=== PATIENT | male | born 1950 | race Caucasian/White ===

== ENCOUNTER 2016-06-16 10:35 | Emergency (ER) | payer MEDICARE ==
[~2016-06-16] VITALS: Ht 177.8 cm; Wt 131.5 kg
[~2016-06-16 10:35] MED LIST: *CXR; /ADVA50050; /ADVA50050 IN; /ADVA50050 INH; /AUGM875TA; /GLIP10TAB; /METO5T; /MOXI40TA OR; /TAMS4CA; /TAMS4CA OR; /TIOT18INH INH; ACET10SO INH; ACTOS15 PO; ADV500INH INH; ADVAIR250 INHALATION; ALBOTERNEB INHALATION; ALBU17IN2 INH; ALBUTEROL INH; ALDACTON25 PO; ALLO300T; ALLO300T OR; ALLOPUR300 PO; AMLO10TA; AMLO10TA OR; AMO500 PO; ASP325; ASPI325T OR; ASPI325T PO; ATEN25TA OR; ATEN25TA PO; ATROV NEBS; ATROV NEBS INHAL; ATROVENTIN PO; AUG875 PO; AVANDIA2 PO; AVELOX PO; BACTRIMDS PO; BUDE0.254 INH; CANNULA INH; CECLOR PO; CEFTIN250 PO; CEFTIN500 PO; CIPR-250 PO; CIPR500T4 OR; CIPR500T89 PO; CIPRO250; COLA100C PO; COLA100C2 OR; COLA50CA3 PO; COLCHI0.6 PO; COZA100T OR; CRESTOR PO; DOCU10ELUD PO; DOXY100T OR; DUONEBS INH; DUONSOL; DUONSOL IN; DUONSOL INH; DUONSOL INHALATION; E E S PO; ECOT325T5; EES PO; EUCECRE2 EXT; FINA5TAB2 PO; FLAG500T; FLAGYL250 PO; FLOM5CAP PO; FLOMAX 0.4; FLUC10TA OR; FORTAMET PO; FURO20TA; FURO20TA2 PO; FURO40TA2; FURO40TA2 OR; FURO40TA2 PO; GENTAMICIN INH; GLIP10TA PO; GLIP10TA97 OR; GLUCOSE TEST; INSUDET SC; INSULADS SC; INSULANT SC; INSULIN 70/30; IPRASOL4 INH; IPRATROP INHALATION; ISMO20TA; ISMO20TA OR; ISORDIL OR; ISORDIL20 PO; ISOS20TA PO; ISOSORBIDE MONO PO; KEFLEX500 PO; KLOR1TAB77 PO; KLOR20TA PO; LAMISIL250 PO; LANTINJ SC; LASI40TA; LASI40TA PO; LASI80TA PO; LASIX40 PO; LEVO500T PO; LEVO500T32 PO; LEVO750T PO; LISINOPR20 PO; LOSA100T36 PO; MEDROLDP PO; METF500T PO; METFORM100 PO; MILKSUS OR; MOM30SS PO; MONOPRIL10 PO; MUCI600T34 PO; Mucinex PO; NYSTPOW4 TOP; OMEP40CA2 PO; OXYGEN; PERF20NE2 INH; POTA10CA2; POTA20TA; POTA20TA OR; PRED10PA PO; PRED10TA PO; PRED10TA2 OR; PRED10TA2 PO; PRED20TA OR; PRED20TA PO; PRED50TA OR; PRED5TAB OR; PREDNISO10 PO; PREDNISO20 PO; PREDNISONE; PREDPOW10 PO; PRIL20CA PO; PROS5TAB; PROS5TAB OR; PROVENTILI PO; PULM0.5S INH; ROBITUSSDM PO; SENO8.6T2 PO; SENO8.6T5 OR; SENO8.6T5 PO; SEREVENTIN PO; SIMV40TA2; SIMV40TA2 OR; SIMV40TA2 PO; STOO100C PO; SYMB80AE INH; TENO25TA; TESS100C OR; TESS100C PO; TESSALO100 PO; THEO200T4 PO; THEO200T7 OR; THEODUR PO; THEOPHYLLINE; THEOPHYLLINE PO; TOBRAMYCIN INH; TUSSSUS5 PO; ZOCOR40 PO; ZYLO300T4 PO; [UNRECOGNIZED DRUG - CODE] NEB; [UNRECOGNIZED DRUG - CODE] NEB; [UNRECOGNIZED DRUG - CODE] PO; [UNRECOGNIZED DRUG - CODE] PO; [UNRECOGNIZED DRUG - CODE] PO; [UNRECOGNIZED DRUG - OTHER]; [UNRECOGNIZED DRUG - OTHER]; [UNRECOGNIZED DRUG - OTHER] PO; [UNRECOGNIZED DRUG - OTHER] PO; [UNRECOGNIZED DRUG - OTHER] PO; [UNRECOGNIZED DRUG - OTHER] TOPICAL; [UNRECOGNIZED DRUG - SUPPLY]; gentamicin INH; mucinex PO; mucomyst INH; prednisone taper; senokot PO
[2016-06-16] MEDS ORDERED: INSUH10VL SC (10:53)
[2016-06-16] MEDS ORDERED: K-TA1TAB PO (10:53)
[2016-06-16] MEDS ORDERED: INSULANT SC (10:53)
[2016-06-16] MEDS ORDERED: THEO200T4 PO (10:53)
[2016-06-16] MEDS ORDERED: CLOT1CRE71 TOP (11:34)
[2016-06-16 11:52] VITALS: BP 127/72
== END 2016-06-16 11:57 | disposition home or self-care (01) ==
LOC: M ED 11:45
DX: B35.3 Tinea pedis (principal); I87.8 Other specified disorders of veins; E11.40 Type 2 diabetes mellitus with diabetic neuropathy, unspecified; Z87.891 Personal history of nicotine dependence; Z79.4 Long term (current) use of insulin

== ENCOUNTER 2017-01-14 10:27 | Inpatient (IN) | payer MEDICARE ==
[~2017-01-14] VITALS: Ht 180.3 cm; Wt 122.2 kg
[2017-01-14] MEDS: ENOXAPARIN 30 MG/0.3 ML SYR (J1650) SC SCH (09:00)
[~2017-01-14 10:27] MED LIST changes: +CLOT1CRE71 TOP; -COLA100C PO; +COLA100C5 PO; +INSUH10VL SC; +K-TA1TAB PO; +LEVO500T3 PO; -LEVO500T32 PO; +MUCI600T37 PO; -SENO8.6T2 PO; +THEO200T11 PO; -THEO200T4 PO
--- NOTE | 2017-01-14 11:24 | REP ---
Portable chest, 11:03 a.m., single AP view, patient sitting: Comparison is 09/26/2014. Lung maldonado are chronically hyperinflated, unchanged. There is effacement of the costophrenic angles bilaterally, unchanged. There are bibasilar chronic fibrotic changes, unchanged. There are no acute infiltrates. Cardiac size is normal. The kayleigh, mediastinum, bony thorax are unremarkable. The study is underpenetrated as a consequence of portable technique. Impression: No acute cardiopulmonary findings. There are chronic fibrotic changes, similar to the prior study. Signed by Gian Hernandez MD 01/14/2017 11:15 A
[2017-01-14] MEDS ORDERED: IPRATROPIUM 0.5MG/ALBUTEROL 2.5MG INH SOL UD 3ML (DUONEB)(J7620) NEB ONE (13:00)
[2017-01-14 13:01] LABS: BASO # 0.1 10^3/uL (0.0-0.2); BASO % 0.6 % (0.0-1.0); EOS # 0.1 10^3/uL (0.0-0.50); EOS % 0.5 % (0.0-3.0); IMMATURE GRANULOCYTE % 0.5 % (0-0); LYMPH # 1.2 10^3/uL (1.5-4.5); LYMPH % 9.3 % (24.0-44.0); MEAN CORPUSCULAR HEMOGLOBIN 29.7 pg (27.0-33.0); MEAN CORPUSCULAR HGB CONC 31.1 g/dl (32.0-36.5); MEAN CORPUSCULAR VOLUME 95.7 fl (80.0-96.0); MONO # 0.8 10^3/uL (0.0-0.8); MONO % 5.7 % (0.0-5.0); NEUTROPHILS % 83.4 % (36.0-66.0); PLATELET COUNT, AUTOMATED 263 10^3/uL (150-450); RED CELL DISTRIBUTION WIDTH 14.7 % (11.5-14.5); WHITE BLOOD COUNT 13.2 10^3/uL (4.0-10.0)
[2017-01-14 13:12] LABS: INR 1.13
[2017-01-14 13:36] LABS: ALBUMIN/GLOBULIN RATIO 0.57 (1.00-1.93); ALKALINE PHOSPHATASE 162 U/L (45-117); ALT/SGPT 81 U/L (12-78); ANION GAP 6 MEQ/L (8-16); AST/SGOT 41 U/L (15-37); BILIRUBIN,DIRECT 0.2 MG/DL (0.0-0.2); BILIRUBIN,TOTAL 0.5 MG/DL (0.2-1.0); BLOOD UREA NITROGEN 34 MG/DL (7-18); CALCIUM LEVEL 9.4 MG/DL (8.8-10.2); CARBON DIOXIDE LEVEL 34 MEQ/L (21-32); CHLORIDE LEVEL 99 MEQ/L (98-107); CREATININE FOR GFR 1.84 MG/DL (0.70-1.30); GLOMERULAR FILTRATION RATE 39.1 (>49); GLUCOSE, FASTING 138 MG/DL (80-110); SODIUM LEVEL 139 MEQ/L (136-145); TOTAL PROTEIN 8.3 GM/DL (6.4-8.2)
[2017-01-14] MEDS ORDERED: FUROSEMIDE 40 MG/4 ML VIAL (J1940) IV ONE (14:00)
--- NOTE | 2017-01-14 14:28 | HPEPDOC ---
[facility] Medical History & Physical Date of Admission Jan 14, 2017 History and Physical ATTENDING: Dr. Deshpande PCP: Dr Arenas Pulmonary. Dr Pimentel CC: SOB HPI: 66yoM with a past medical history significant for Asthma/COPD, O2 and steroid dependent, CHF who reported to ED with increasing SOB since Sat. The patient is accompanied by his . They report this on Wednesday his breathing has been worsening. He has been experiencing orthopnea, PND, nocturia 1. He reports dry cough. No sputum production. He also reports increasing wheezing. He did not note any edema until his arrival at the emergency department. He denies any chest heaviness, tightness, or pressure. Denies any fevers, chills , VO, palpitations, abdominal pain, N/V/D or changes in bowel or bladder habits. Denies any recent illnesses. Upon presentation to the hospital the patient was treated with IV Lasix and DuoNeb in the emergency department with persistent shortness of breath, thus the hospitalist team was consulted. PMHx: Asthma/COPD. Steroid dependent/O2 dependent 2 LNC HTN History of chronic lower extremity edema TTE [facility] 11/21. EF 60%, nml diastolic function. Gout HLD HTN IDDM SHANNON. CPAP Chronic LBP CKD3. Baseline 1.5-1.8. Obesity. BMI 40.5 History of recurrent pseudomonal pneumonia PSHX: Prosthesis Left eye 1976 BPH S/P TURP. 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 Quit 1996 ETOH: None since 1996 Illicit Drugs: Denies Recent travel: Denies Advanced directives: Healthcare proxy Indu Avelar, . [phone] FAMHX: Siblings: 2 sisters Alive, well. One brother heart disease. Children: Alive, well ROS: As noted in HPI, otherwise 11pt ROS of systems reviewed and unremarkable. PE: GEN: 66 yo M, appears stated age. Well-nourished, well developed. No acute distress. Alert and oriented x 3. Pleasant, interactive. HEENT: Normocephalic, atraumatic. Pupils are equal, round, and reactive to light. Extraocular movements are intact. No nystagmus appreciated. Sclera are nonicteric. Conjunctiva without injection. Nose midline. Nasal turbinates without bogginess. No facial asymmetry. Moist mucous membranes. Dentition fair. Pharynx pink and moist, no cobblestoning. Neck supple, trachea midline. No lymphadenopathy or thyromegaly appreciated. CHEST: +S1, +S2 distant, regular. JVD not appreciated sitting. LUNGS: Decreased breath sounds bilaterally with inspiratory and expiratory wheezes diffusely, and straight rales noted at the bases left greater than right. No rhonchi. Breathing is comfortable sitting in a chair at rest. Patient is speaking in full sentences. No accessory muscle use. ABD: Round, soft, non-tender, non-distended. +Bowel sounds throughout. No rebound or guarding. No costovertebral angle tenderness. EXT: 1 mm bilateral lower extremity pretibial edema to proximal pretibial area. SKIN: [place], dry, warm. Capillary refill <2sec. No rashes. NEURO: Alert and oriented x 3. Cranial nerves III-XII are intact. No focal deficits appreciated. CXR: No acute cardiopulmonary findings. There are chronic fibrotic changes, similar to the prior study. EKG: Sinus rhythm, nonspecific ST-T abnormality, 78 bpm. BLOOD CULTURES: x 2 pending UA/UC pending. A&P: 66yoM with a past medical history significant for Asthma/COPD, O2 and steroid dependent, CHF who reported to ED with increasing SOB since Sat. The patient is accompanied by his . They report this on Wednesday his breathing has been worsening. He has been experiencing orthopnea, PND, nocturia 1. He reports dry cough. No sputum production. He also reports increasing wheezing. He did not note any edema until his arrival at the emergency department. 1. The patient will be admitted to PCU for at least [address] Deshpande 's service. Pt is discussed with Dr Cuenca. 2. COPD/COPD exacerbation. O2 and steroid dependent. Patient uses 2 L of O2 at home. IV Solumedrol 60 mg IV Q12. Duonebs. Continue Pt's outpt neb regimen. Of note, patient with history of recurrent pseudomonal pneumonia. Pt is also on Gentamicin Neb 28 days on/28 days off. Pt is currently off and due to restart 01/26/17. Patient also remains on chronic suppressive therapy with azithromycin 250 mg by mouth daily. Respiratory panel pending, holding off on antibiotics at this time. 3. Hypertension/H/O CHF/decompensated CHF. PCU/TM. Update TTE. TSH WNL. Trend BNP. IV Lasix 160mg x 1 in ED, continue with IV Lasix 80mg IV BID. Zaroxolyn 5 mg x 1 today. Continue Atenolol/ARB with hold parameters. Cont Aldactone 25 mg daily/KCL supplement. 4. Elevated LFTs. Possibly related to hepatic congestion. Trend labs. Add hepatitis profile. Liver U/S requested. 5. IDDM. CC diet/SSI/Levemir 45 units at bedtime. Glipizide is currently on hold. 6. Dyslipidemia. Continue Statin. 7. CKD3. baseline appears to be 1.5-1.8, 1.84 currently. 8. BPH/status post TURP. Continue Finasteride. 9. Obesity BMI 40.5, complicates care. 10. Gout. Continue allopurinol. 11. SHANNON. Continue CPAP with home settings. DVT prophylaxis. Lovenox renally dosed. MED REC PENDING AT THIS TIME. The patient is a Full code. Vital Signs Vital Signs Date Time Temp Pulse Resp B/P (MAP) Pulse Ox O2 Delivery O2 Flow Rate FiO2 01/14/17 12:42 74 93 01/14/17 12:40 154/82 (106) 01/14/17 11:11 Nasal Cannula 01/14/17 10:28 98.0 22 2.0 Laboratory Data Labs 24H Laboratory Tests 2 01/14/17 12:39: Immature Granulocyte % (Auto) 0.5H, White Blood Count 13.2H, Red Blood Count 4.64, Hemoglobin 13.8L, Hematocrit 44.4, Mean Corpuscular Volume 95.7, Mean Corpuscular Hemoglobin 29.7, Mean Corpuscular Hemoglobin Concent 31.1L, Red Cell Distribution Width 14.7H, Platelet Count 263, Neutrophils (%) (Auto) 83.4H , Lymphocytes (%) (Auto) 9.3L, Monocytes (%) (Auto) 5.7H, Eosinophils (%) (Auto ) 0.5, Basophils (%) (Auto) 0.6, Neutrophils # (Auto) 11.0H, Lymphocytes # (Auto ) 1.2L, Monocytes # (Auto) 0.8, Eosinophils # (Auto) 0.1, Basophils # (Auto) 0.1 , Immature Granulocyte # (Auto) 0.1H, Nucleated Red Blood Cells % (auto) 0.0, Prothrombin Time 14.7H, Prothromb Time International Ratio 1.13 01/14/17 12:46: Anion Gap 6L, Glomerular Filtration Rate 39.1L, Calcium Level 9.4, Aspartate Amino Transf (AST/SGOT) 41H, Alanine Aminotransferase (ALT/SGPT) 81H, Alkaline Phosphatase 162H, Total Bilirubin 0.5, Direct Bilirubin 0.2, Total Creatine Kinase 123, Creatine Kinase MB 3.0, Creatine Kinase MB Relative Index 2.43, Troponin I < 0.02, UK-Hba-O-Type Natriuretic Peptide 319H, Total Protein 8.3H, Albumin 3.0L, Albumin/Globulin Ratio 0.57L, Thyroid Stimulating Hormone (TSH) 1.150 CBC/BMP Laboratory Tests 01/14/17 12:39 Red Blood Count 4.64, Mean Corpuscular Volume 95.7, Mean Corpuscular Hemoglobin 29.7, Mean Corpuscular Hemoglobin Concent 31.1 L, Red Cell Distribution Width 14.7 H, Neutrophils (%) (Auto) 83.4 H, Lymphocytes (%) (Auto) 9.3 L, Monocytes ( %) (Auto) 5.7 H, Eosinophils (%) (Auto) 0.5, Basophils (%) (Auto) 0.6, Neutrophils # (Auto) 11.0 H, Lymphocytes # (Auto) 1.2 L, Monocytes # (Auto) 0.8 , Eosinophils # (Auto) 0.1, Basophils # (Auto) 0.1 01/14/17 12:46 Microbiology Microbiology 01/14/17 Blood Culture, Received Pending 01/14/17 Blood Culture, Received Pending Home Medications Scheduled Albuterol/Ipratropium (Ipratropium [place]/Albut 0.5-2.5 (3) mg/3Ml) 1 Jennifer Jennifer, 1 DOSE INH QID Allopurinol (Zyloprim) 300 Mg Tab, 300 MG PO DAILY Aspirin (Aspirin) 325 Mg Tab, 325 MG PO DAILY Atenolol (Atenolol) 25 Mg Tab, 25 MG PO DAILY Azithromycin (Azithromycin) 250 Mg Tab, 250 MG PO DAILY Budesonide (Budesonide) 0.5 Mg/2 Ml Neb, 0.5 MG INH BID MIX WITH PERFOROMIST Finasteride (Finasteride) 5 Mg Tab, 5 MG PO QHS Formoterol Fumarate Dihydrate (Perforomist) 20 Mcg/2 Ml Neb, 20 MCG INH BID MIX WITH BUDESONIDE Furosemide (Lasix) 80 Mg Tab, 80 MG PO BID Gentamicin Sulfate (Gentamicin Sulfate) 80 Mg/2 Ml Soln, 80 MG NEB BID 28 DAYS ON, 28 DAYS OFF. DUE TO RESTART ON 01/26/17 Glipizide (Glipizide Xl) 10 Mg Tab, 10 MG PO BID Guaifenesin (Mucinex) 600 Mg Tab, 600 MG PO BID Insulin Aspart (Novolog) 100 U/Ml Inj, 0 SC AC PER SLIDING SCALE Insulin Glargine (Lantus) 1 Units/0.01 Ml Susp, 45 SC QHS Losartan Potassium (Losartan Potassium) 100 Mg Tab, 100 MG PO DAILY Potassium Chloride (K-Tab) 20 Meq Tab, 40 MEQ PO TID Prednisone (Prednisone) 10 Mg Tab, 10 MG PO DAILY Senna (Senokot) 8.6 Mg Tab, 1 TAB PO BID Simvastatin - High Dose (Simvastatin) 40 Mg Tab, 40 MG PO QHS Spironolactone (Spironolactone) 25 Mg Tab, 25 MG PO DAILY Theophylline (Theophylline ER) 400 Mg Tabcr, 400 MG PO DAILY Allergies Coded Allergies: Colchicine (Verified Allergy, Intermediate, HIVES, 07/11/12) Jesusita Mclean Jan 14, 2017 14:28
[2017-01-14] MEDS ORDERED: NOVOINJ3 (14:54)
[2017-01-14] MEDS ORDERED: IPRATROPIUM 0.5MG/ALBUTEROL 2.5MG INH SOL UD 3ML (DUONEB)(J7620) NEB PRN (15:00)
[2017-01-14] MEDS: metOLazone 5 MG TAB PO ONE (15:00)
[2017-01-14] MEDS ORDERED: AZIT250T8 PO (15:03)
[2017-01-14] MEDS ORDERED: SPIR25TA2 PO (15:03)
[2017-01-14] MEDS ORDERED: GLIP1TAB11 PO (15:03)
[2017-01-14] MEDS ORDERED: BUDE0.5S6 INH (15:03)
[2017-01-14] MEDS ORDERED: LOSA100T36 PO (15:03)
[2017-01-14] MEDS ORDERED: THEO400T4 PO (15:03)
[2017-01-14] MEDS ORDERED: DEXTROSE 50% 50 ML SYRINGE IV PRN (15:15)
[2017-01-14] MEDS ORDERED: GLUCOSE 4 GM CHEW TABLET PO PRN (15:15)
[2017-01-14] MEDS ORDERED: GLUCAGON FOR INJ 1 MG VIAL (J1610) SC PRN (15:15)
--- NOTE | 2017-01-14 15:59 | REP ---
LIVER ULTRASOUND: HISTORY: Abnormal liver function tests. There are no filling defects in the gallbladder. The gallbladder wall measures 2 mm. The common bile duct measures 6.3 mm. The liver is enlarged measuring 21 cm in cephalocaudal dimension. There is fatty infiltration of the liver. The pancreas is not seen due to overlying bowel gas. The right kidney measures 7.5 cm in transverse by 6 cm in AP by 11.1 cm in cephalocaudal dimensions. There is no hydronephrosis or mass. IMPRESSION: 1. Fatty infiltration of the liver. 2. Hepatomegaly. Signed by Jabier Argueta MD 01/14/2017 04:08 P
[2017-01-14] MEDS: methylPREDNISolone INJ 125 MG/2 ML VIAL (J2930) IV SCH ×2 (16:00→22:08)
[2017-01-14] MEDS: POTASSIUM CHLORIDE 10 MEQ SR TABLET PO SCH ×2 (16:00→20:50)
[2017-01-14] MEDS ORDERED: FUROSEMIDE 100 MG/10 ML VIAL (J1940) IV SCH (17:00)
[2017-01-14] MEDS: HumaLOG INSULIN (NovoLOG) PER UNIT SC SCH ×2 (17:16→20:40)
[2017-01-14] MEDS: FORMOTEROL FUMARATE 20 MCG/2 ML INHALATION SOLUTION (PERFOROMIST) INH SCH (19:39)
[2017-01-14] MEDS: BUDESONIDE 0.5 MG/2 ML INHALATION SUSPENSION INH SCH (19:39)
[2017-01-14] MEDS: IPRATROPIUM 0.5MG/ALBUTEROL 2.5MG INH SOL UD 3ML (DUONEB)(J7620) NEB SCH (19:39)
[2017-01-14] MEDS: guaiFENesin ER 600 MG TAB PO SCH (20:50)
[2017-01-14] MEDS: SIMVASTATIN 20 MG TAB PO SCH (20:51)
[2017-01-14] MEDS: SENOKOT S TAB PO SCH (20:51)
[2017-01-14] MEDS: FINASTERIDE 5 MG TAB PO SCH (20:51)
[2017-01-14] MEDS: LEVEMIR (INSULIN DETEMIR) 1 UNITS/0.01ML SC SCH (20:54)
[2017-01-15] MEDS: IPRATROPIUM 0.5MG/ALBUTEROL 2.5MG INH SOL UD 3ML (DUONEB)(J7620) NEB SCH ×2 (00:57→08:36)
[2017-01-15] MEDS: methylPREDNISolone INJ 125 MG/2 ML VIAL (J2930) IV SCH ×4 (03:40→21:12)
[2017-01-15 06:58] LABS: BASO % 0.2 % (0.0-1.0); IMMATURE GRANULOCYTE % 0.6 % (0-0); LYMPH # 0.6 10^3/uL (1.5-4.5); LYMPH % 5.6 % (24.0-44.0); MEAN CORPUSCULAR HEMOGLOBIN 29.3 pg (27.0-33.0); MEAN CORPUSCULAR HGB CONC 31.7 g/dl (32.0-36.5); MEAN CORPUSCULAR VOLUME 92.5 fl (80.0-96.0); MONO # 0.1 10^3/uL (0.0-0.8); MONO % 1.2 % (0.0-5.0); NEUTROPHILS % 92.4 % (36.0-66.0); PLATELET COUNT, AUTOMATED 268 10^3/uL (150-450); RED CELL DISTRIBUTION WIDTH 14.2 % (11.5-14.5); WHITE BLOOD COUNT 10.8 10^3/uL (4.0-10.0)
--- NOTE | 2017-01-15 07:20 | REPUSA ---
CT CHEST WITHOUT IV CONTRAST CLINICAL HISTORY: Chest pain. TECHNIQUE: Multiple axial CT images were obtained through the thorax without IV contrast material. COMMENTS: Healed fracture of the axillary portion of the right sixth rib. There is bilateral peribronchial interstitial thickening suggestive of bronchitis. Bilateral basilar bronchiectatic changes with a surrounding bronchiolitis/tree in bud. Basilar atelectatic pulmonary changes. Mild hepatomegaly. There is no evidence of pleural or parenchymal-based mass. There are no pleural effusions. There is n o evidence of hilar or mediastinal lymphadenopathy. The heart and great vessels are within normal mcmullen its. The visualized portions of the liver are of uniform attenuation without mass or defect. There is no i ntra or extrahepatic biliary ductal dilatation. The spleen is unremarkable. The visualized pancreas i s of normal contour and attenuation characteristics. There is no evidence of adrenal mass. The visual ized portions of the kidneys present no abnormalities. The bony structures are free of lytic or blastic lesions. IMPRESSION: Bronchitis. Bronchiectasis. Bronchiolitis. Bibasilar subsegmental atelectatic pulmonary changes. Hepatomegaly. Healed fracture of the axillary portion of the right sixth rib. Thank you for your kind referral of this patient.
[2017-01-15 07:21] LABS: ALBUMIN 2.9 GM/DL (3.2-5.2); ALBUMIN/GLOBULIN RATIO 0.53 (1.00-1.93); ALKALINE PHOSPHATASE 147 U/L (45-117); ALT/SGPT 72 U/L (12-78); ANION GAP 9 MEQ/L (8-16); AST/SGOT 25 U/L (15-37); BILIRUBIN,TOTAL 0.4 MG/DL (0.2-1.0); BLOOD UREA NITROGEN 45 MG/DL (7-18); CALCIUM LEVEL 9.3 MG/DL (8.8-10.2); CARBON DIOXIDE LEVEL 30 MEQ/L (21-32); CHLORIDE LEVEL 96 MEQ/L (98-107); CREATININE FOR GFR 1.91 MG/DL (0.70-1.30); GLOMERULAR FILTRATION RATE 37.5 (>49); GLUCOSE, FASTING 282 MG/DL (80-110); MAGNESIUM LEVEL 2.4 MG/DL (1.8-2.4); POTASSIUM SERUM 4.7 MEQ/L (3.5-5.1); SODIUM LEVEL 135 MEQ/L (136-145); TOTAL PROTEIN 8.4 GM/DL (6.4-8.2)
[2017-01-15] MEDS: HumaLOG INSULIN (NovoLOG) PER UNIT SC SCH ×4 (07:30→21:13)
--- NOTE | 2017-01-15 08:21 | ECGEPIP ---
Stationary ECG Study [facility] - ED Test Date: 2017-01-14 Pat Name: DERREK TURNER Department: Room: - Gender: M Certified Nurse: low : 1950 Requested By: Mimi Campbell Order Number: [id number] Reading MD: Mimi Campbell Measurements Intervals [place] Rate: 78 P: 18 TX: 154 QRS: 33 QRSD: 81 T: 77 QT: 385 QTc: 439 Interpretive Statements SINUS RHYTHM NONSPECIFIC T-WAVE ABNORMALITY LOW VOLTAGE LIMB SIMIALR 06/22/14 Electronically Signed On 01-15-2017 8:21:10 EDT by Mimi Campbell
[2017-01-15] MEDS: BUDESONIDE 0.5 MG/2 ML INHALATION SUSPENSION INH SCH ×2 (08:36→20:10)
[2017-01-15] MEDS ORDERED: ALBUTEROL SULFATE 2.5 MG/0.5 ML INH NEB SOLN INH PRN (08:45)
[2017-01-15] MEDS: guaiFENesin ER 600 MG TAB PO SCH ×2 (09:00→21:14)
[2017-01-15] MEDS: ASPIRIN 325 MG TAB PO SCH (09:29)
[2017-01-15] MEDS: SENOKOT S TAB PO SCH ×2 (09:29→21:13)
[2017-01-15] MEDS: ALLOPURINOL 300 MG TAB PO SCH (09:30)
[2017-01-15] MEDS: LOSARTAN 50 MG TAB PO SCH (09:32)
[2017-01-15] MEDS: SPIRONOLACTONE 25 MG TAB PO SCH (09:32)
[2017-01-15] MEDS: AZITHROMYCIN 250 MG TAB PO SCH (09:32)
[2017-01-15] MEDS: ATENOLOL 25 MG TAB PO SCH (09:33)
[2017-01-15] MEDS: POTASSIUM CHLORIDE 10 MEQ SR TABLET PO SCH ×3 (09:34→21:13)
[2017-01-15] MEDS: ENOXAPARIN 30 MG/0.3 ML SYR (J1650) SC SCH (09:36)
[2017-01-15] MEDS: FORMOTEROL FUMARATE 20 MCG/2 ML INHALATION SOLUTION (PERFOROMIST) INH SCH ×2 (11:09→20:10)
--- NOTE | 2017-01-15 11:29 | IPN ---
DATE OF SERVICE: 01/15/2017 Patient is seen and examined at the bedside. Chart has been reviewed. This morning patient states that his breathing has improved. He is requesting for nebulizer treatments to be given every 4 hours. He denies any chest pain, pressure, tightness, shortness of breath, lightheadedness, nausea, vomiting, abdominal pain, dysuria, urgency, frequency, fever, or chills. No other issues per nursing. Telemetry has been unremarkable with ventricle rate of 72 to 82. VITALS: Temperature 97.9, pulse 80, respiratory rate 20, blood pressure 130/61, 88% on three liters nasal cannula. GENERALLY: Patient is awake, alert, oriented to person, place, and time answering questions appropriately. No use of respiratory accessory muscles, able to complete full sentences. Trachea is midline. No jugular venous distention. No thyromegaly. No cervical lymphadenopathy. Moist mucous membranes. LUNGS: Diminished with occasional coarse rhonchi and faint expiratory wheezing. HEART: S1, S2, sinus rhythm. ABDOMEN: Obese, soft, nontender, nondistended. EXTREMITIES: 1+ pitting edema bilaterally. CBC and metabolic panel have been reviewed. Microbiology has been reviewed. IMAGING STUDIES: CT chest shows bronchitis and bronchiectasis, bronchiolitis, hepatomegaly, bibasilar subsegmental atelectatic pulmonary changes, healed fracture axillary portion of the right 6th rib. ASSESSMENT AND PLAN: This is a 66-year-old male with history of obstructive sleep apnea, hypertension, hyperlipidemia, type 2 diabetes, CHF, EF of 60% with preserved ejection fraction, chronic lower extremity, asthma, chronic obstructive pulmonary artery disease (COPD) steroid dependent on 2 liters, BMI of 40.5, obesity, recurrent pseudomonas pneumonia, prosthesis of the left eye, benign prostatic hyperplasia (BPH), status post transurethral resection of prostate (TURP) by Dr. Mckeon who presents to the emergency room on 01/14/2017 with worsening shortness of breath, no sputum production with worsening wheezing and dry cough. Patient denied any chest pain, pressure, or tightness. Admitted for chronic obstructive pulmonary artery disease (COPD), CHF exacerbation. CURRENT ISSUES ARE FOLLOWS: 1. Acute on chronic hypoxic respiratory failure on chronic 3 liters of oxygen. Currently being treated for CHF and COPD, however, chest x-ray and CT chest shows no pulmonary edema, no fluid. Patient will be resumed on his home regimen of Lasix and will be treated for bronchiectasis, bronchitis, and acute COPD exacerbation with IV Solu-Medrol nebulizer treatment, supplement oxygen. Obtain sputum culture. He is oxygen dependent and steroid dependent at baseline. 2. History of CHF diastolic dysfunction and appears to be at his baseline, therefore, we will resume home dose of diuretics. 3. Elevated liver function tests, most likely due to hepatic congestion. Liver ultrasound shows hepatomegaly. 4. Insulin dependent diabetes on Levemir insulin. Consistent carbohydrate diet. 5. Dyslipidemia on statin. 6. Chronic kidney disease. Stage III. Renally dosed all medications. Avoid nephrotoxins. 7. Benign prostatic hyperplasia (BPH) status post transurethral resection of prostate (TURP). Continue finasteride. 8. Obesity complicating medical care. BMI of 40.5. Continue with sleep apnea, CPAP at night. 9. Obstructive sleep apnea (SHANNON). Continue on CPAP with home settings. 10. Deep venous thrombosis (DVT) prophylaxis. Renally dosed Lovenox.
[2017-01-15] MEDS: IPRATROPIUM 0.02% SOLN 0.5MG/2.5 ML NEB INH SCH ×4 (12:00→22:44)
[2017-01-15] MEDS: ALBUTEROL SULFATE 2.5 MG/0.5 ML INH NEB SOLN INH SCH ×4 (12:00→22:44)
[2017-01-15 14:33] VITALS: BP 144/65
[2017-01-15 16:00] VITALS: BP 140/56
--- NOTE | 2017-01-15 16:05 | REP ---
Renal ultrasound: The kidneys are normal size. Right kidney measures 11.6 x 6.5 x 5.7 cm. The left kidney measures 12.4 x 6.4 x 6.3 cm. The renal cortices are mildly echogenic compatible with medical renal disease. There is no hydronephrosis, mass, calculus or cyst on the right on the left. Vascular calcified atheroma is noted in the renal vessels bilaterally. The right renal collecting system is partially duplicated. A column of Joe as an anatomic variant is identified on the left. The bladder is not adequately distended and cannot be further evaluated at this time. Impression: Essentially negative renal ultrasound. Signed by Gian Hernandez MD 01/15/2017 03:57 P
[2017-01-15] MEDS: LEVEMIR (INSULIN DETEMIR) 1 UNITS/0.01ML SC SCH (21:12)
[2017-01-15] MEDS: SIMVASTATIN 20 MG TAB PO SCH (21:13)
[2017-01-15] MEDS: FINASTERIDE 5 MG TAB PO SCH (21:14)
[2017-01-15 21:20] VITALS: BP 154/75
[2017-01-16 00:30] VITALS: BP 138/66
[2017-01-16 03:42] VITALS: BP 152/74
[2017-01-16] MEDS: methylPREDNISolone INJ 125 MG/2 ML VIAL (J2930) IV SCH ×4 (04:47→20:47)
[2017-01-16] MEDS: IPRATROPIUM 0.02% SOLN 0.5MG/2.5 ML NEB INH SCH ×6 (04:53→23:44)
[2017-01-16] MEDS: ALBUTEROL SULFATE 2.5 MG/0.5 ML INH NEB SOLN INH SCH ×6 (04:53→23:44)
[2017-01-16 05:45] LABS: BASO % 0.1 % (0.0-1.0); IMMATURE GRANULOCYTE % 0.6 % (0-0); LYMPH # 0.7 10^3/uL (1.5-4.5); LYMPH % 3.2 % (24.0-44.0); MEAN CORPUSCULAR HEMOGLOBIN 29.6 pg (27.0-33.0); MEAN CORPUSCULAR HGB CONC 31.7 g/dl (32.0-36.5); MEAN CORPUSCULAR VOLUME 93.3 fl (80.0-96.0); MONO # 0.7 10^3/uL (0.0-0.8); MONO % 3.5 % (0.0-5.0); NEUTROPHILS # 19.5 10^3/uL (1.8-7.7); NEUTROPHILS % 92.6 % (36.0-66.0); PLATELET COUNT, AUTOMATED 303 10^3/uL (150-450); RED CELL DISTRIBUTION WIDTH 14.3 % (11.5-14.5); WHITE BLOOD COUNT 21.1 10^3/uL (4.0-10.0)
[2017-01-16 06:03] LABS: ALBUMIN 2.7 GM/DL (3.2-5.2); ALBUMIN/GLOBULIN RATIO 0.55 (1.00-1.93); BILIRUBIN,TOTAL 0.3 MG/DL (0.2-1.0); CALCIUM LEVEL 9.2 MG/DL (8.8-10.2); CREATININE FOR GFR 1.79 MG/DL (0.70-1.30); GLOMERULAR FILTRATION RATE 40.4 (>49); MAGNESIUM LEVEL 2.5 MG/DL (1.8-2.4); TOTAL PROTEIN 7.6 GM/DL (6.4-8.2)
[2017-01-16] MEDS: FORMOTEROL FUMARATE 20 MCG/2 ML INHALATION SOLUTION (PERFOROMIST) INH SCH ×2 (06:59→19:18)
[2017-01-16] MEDS: BUDESONIDE 0.5 MG/2 ML INHALATION SUSPENSION INH SCH ×2 (07:00→19:18)
[2017-01-16] MEDS: HumaLOG INSULIN (NovoLOG) PER UNIT SC SCH ×4 (07:28→20:39)
[2017-01-16 08:00] VITALS: BP 151/77
[2017-01-16] MEDS: ALLOPURINOL 300 MG TAB PO SCH (08:36)
[2017-01-16] MEDS: ASPIRIN 325 MG TAB PO SCH (08:36)
[2017-01-16] MEDS: AZITHROMYCIN 250 MG TAB PO SCH (08:36)
[2017-01-16] MEDS: FUROSEMIDE 80 MG TAB PO SCH ×2 (08:36→20:12)
[2017-01-16] MEDS: guaiFENesin ER 600 MG TAB PO SCH ×2 (08:36→20:12)
[2017-01-16] MEDS: SENOKOT S TAB PO SCH ×2 (08:36→20:11)
[2017-01-16] MEDS: ATENOLOL 25 MG TAB PO SCH (08:37)
[2017-01-16] MEDS: LOSARTAN 50 MG TAB PO SCH (08:37)
[2017-01-16] MEDS: SPIRONOLACTONE 25 MG TAB PO SCH (08:38)
[2017-01-16] MEDS: POTASSIUM CHLORIDE 10 MEQ SR TABLET PO SCH ×3 (08:38→20:12)
[2017-01-16] MEDS: ENOXAPARIN 30 MG/0.3 ML SYR (J1650) SC SCH (08:39)
[2017-01-16 12:00] VITALS: BP 120/60
--- NOTE | 2017-01-16 13:45 | IPN ---
DATE: 01/16/2017 Patient is seen and examined at the bedside. Chart has been reviewed. The patient continues to complain of shortness of breath, slightly improved, no chest pain, pressure or tightness, dizziness, lightheadedness, nausea, or vomiting, fever or chills. Last night telemetry was unremarkable. VITALS: Temperature 96.5, pulse 67, respiratory rate 20, blood pressure 152/74, 94% on 3 liters nasal cannula. GENERALLY: Awake, alert, oriented times three. Answering questions appropriately. No respiratory accessory muscle use. Able to speak in full sentences. LUNGS: Diminished, coarse rhonchi, occasional wheezing. HEART: S1, S2, sinus rhythm. ABDOMEN: Obese, soft, nontender, nondistended. Positive bowel sounds times four quadrants. EXTREMITIES: Chronic 2+ pitting edema bilaterally. Laboratory data: CBC, metabolic panel, microbiology and imaging studies have been reviewed. ASSESSMENT AND PLAN: This is a 66-year-old male with history of obstructive sleep apnea, hypertension, hyperlipidemia, type 2 diabetes, metabolic syndrome, congestive heart failure (CHF), ejection fraction of 60% with preserved ejection fraction, chronic lower extremity edema, asthma, chronic obstructive pulmonary artery disease (COPD) steroid and oxygen dependent usually 2 liters of oxygen, BMI of 40, obesity, recurrent pseudomonas pneumonia, prosthesis of the left eye, benign prostatic hyperplasia (BPH), status post transurethral resection of prostate (TURP) by Dr. Mckeon who presented to the emergency department on 01/14/2017 with worsening shortness of breath, no sputum production with a dry cough, denied chest pain, pressure and admitted for COPD, possible congestive heart failure (CHF) exacerbation. IMPRESSION: 1. COPD exacerbation. Currently on IV Solu-Medrol nebulizer treatments. Already on supplemental oxygen. CT of the chest shows no pneumonia with bronchiectasis and bronchitis. Obtain sputum culture. Acapella. 2. History of CHF diastolic dysfunction. Appears to be at his baseline, euvolemic. Resume home dose of diuretics. Has chronic lower extremity edema. Monitor input, output, daily weights and fluid restriction. 3. Elevated liver function tests, most likely due to hepatic congestion. Liver ultrasound shows hepatomegaly. 4. Insulin dependent diabetes on Levemir insulin. Consistent carbohydrate diet. Sliding scale with coverage. Prandial glucose 90 to 130, postprandial of less than 180. 5. Dyslipidemia on statin. 6. Chronic kidney disease. Stage III. Renally dosed all medications. Avoid nephrotoxins. Resume home dose of diuretics. Monitor input and output and daily weights. 7. Benign prostatic hyperplasia (BPH) status post transurethral resection of prostate (TURP). Continue finasteride. 8. Obesity complicating medical care. BMI of 40.5. 9. Obstructive sleep apnea (SHANNON). On CPAP, continue home settings. 10. Deep venous thrombosis (DVT) prophylaxis. Renally dosed Lovenox.
--- NOTE | 2017-01-16 14:26 | ECHO ---
DATE OF PROCEDURE: 01/15/2017 DATE OF : 1950 AGE: 66 REFERRING PROVIDER: Jesuista Mclean PA-C PATIENT LOCATION: Room 3212 REASON FOR THE ECHOCARDIOGRAM: Edema. 2D MEASUREMENTS: IVS: 1.3 cm LV: 4.8 cm LVPW: 1.3 cm LA: 3.9 cm Aorta: 3.8 cm IVC: 2.1 cm DOPPLER MEASUREMENTS: Peak velocity across the aortic valve: 1.5 m/s Peak velocity across the LVOT: 1.0 m/s Mitral E: 0.64, Mitral A: 0.81, with a ratio a 0.8 2D COMMENTS: 1. Mildly increased left ventricular wall thickness with normal liver ventricular size and a normal global left ventricular systolic function. Left ventricular systolic ejection fraction is estimated at 60-65%. 2. Borderline enlarged left atrium. The right atrium appeared to be mildly enlarged. Normal right ventricle. 3. The atrial septum appeared to be normal without evidence of defect or shunt. 4. Mildly enlarged aortic root at 3.8 cm. 5. No pericardial effusion seen. 6. The aortic valve, mitral valve, tricuspid valve, and pulmonic valve appear to be normal. The proximal pulmonary artery branches were not well visualized. 7. The inferior vena cava is mildly enlarged, central venous pressure is probably mildly elevated. DOPPLER: No significant valvular abnormalities detected. Abnormal relaxation pattern was noted across the mitral valve leaflets as well as the mitral valve annulus consistent with a delayed relaxation. IMPRESSION: 1. Normal global left ventricular systolic function. There were some features of left ventricular diastolic dysfunction manifested by abnormal relaxation. 2. Isolated biatrial enlargement noted, no significant mitral or/and tricuspid regurgitation detected. 3. Mildly dilated aortic root at 3.8 cm. 4. There were features of elevated central venous pressure. MTDD
[2017-01-16 15:00] VITALS: BP 147/68
[2017-01-16] MEDS: SIMVASTATIN 20 MG TAB PO SCH (20:11)
[2017-01-16] MEDS: FINASTERIDE 5 MG TAB PO SCH (20:12)
[2017-01-16] MEDS: LEVEMIR (INSULIN DETEMIR) 1 UNITS/0.01ML SC SCH (20:38)
[2017-01-16 22:00] VITALS: BP 142/70
[2017-01-17] MEDS: ALBUTEROL SULFATE 2.5 MG/0.5 ML INH NEB SOLN INH SCH ×6 (03:31→23:50)
[2017-01-17] MEDS: IPRATROPIUM 0.02% SOLN 0.5MG/2.5 ML NEB INH SCH ×6 (03:35→23:49)
[2017-01-17] MEDS: methylPREDNISolone INJ 125 MG/2 ML VIAL (J2930) IV SCH ×4 (04:41→21:37)
[2017-01-17 06:00] VITALS: BP 130/70
[2017-01-17 06:38] LABS: BASO % 0.1 % (0.0-1.0); LYMPH # 0.7 10^3/uL (1.5-4.5); LYMPH % 3.4 % (24.0-44.0); MEAN CORPUSCULAR HEMOGLOBIN 29.6 pg (27.0-33.0); MEAN CORPUSCULAR HGB CONC 32.6 g/dl (32.0-36.5); MEAN CORPUSCULAR VOLUME 90.9 fl (80.0-96.0); MONO # 0.8 10^3/uL (0.0-0.8); MONO % 3.9 % (0.0-5.0); NEUTROPHILS # 17.6 10^3/uL (1.8-7.7); NEUTROPHILS % 91.6 % (36.0-66.0); PLATELET COUNT, AUTOMATED 289 10^3/uL (150-450); RED CELL DISTRIBUTION WIDTH 14.2 % (11.5-14.5); WHITE BLOOD COUNT 19.3 10^3/uL (4.0-10.0)
[2017-01-17 06:40] LABS: ADD MANUAL DIFFER NO; DIFF SLIDE NUMBER 30
[2017-01-17 06:49] LABS: ALBUMIN/GLOBULIN RATIO 0.71 (1.00-1.93); BILIRUBIN,TOTAL 0.4 MG/DL (0.2-1.0); CALCIUM LEVEL 9.3 MG/DL (8.8-10.2); CREATININE FOR GFR 1.88 MG/DL (0.70-1.30); GLOMERULAR FILTRATION RATE 38.2 (>49); MAGNESIUM LEVEL 2.3 MG/DL (1.8-2.4); POTASSIUM SERUM 4.8 MEQ/L (3.5-5.1); TOTAL PROTEIN 7.2 GM/DL (6.4-8.2)
[2017-01-17] MEDS ORDERED: FUROSEMIDE 100 MG/10 ML VIAL (J1940) IV ONE (07:15)
[2017-01-17] MEDS: FORMOTEROL FUMARATE 20 MCG/2 ML INHALATION SOLUTION (PERFOROMIST) INH SCH ×2 (07:16→19:25)
[2017-01-17] MEDS: BUDESONIDE 0.5 MG/2 ML INHALATION SUSPENSION INH SCH ×2 (07:16→19:25)
[2017-01-17] MEDS: ENOXAPARIN 30 MG/0.3 ML SYR (J1650) SC SCH (08:07)
[2017-01-17] MEDS: HumaLOG INSULIN (NovoLOG) PER UNIT SC SCH ×4 (08:08→21:17)
[2017-01-17] MEDS: SENOKOT S TAB PO SCH ×2 (08:08→21:17)
[2017-01-17] MEDS: LOSARTAN 50 MG TAB PO SCH (08:09)
[2017-01-17] MEDS: ASPIRIN 325 MG TAB PO SCH (08:09)
[2017-01-17] MEDS: AZITHROMYCIN 250 MG TAB PO SCH (08:09)
[2017-01-17] MEDS: POTASSIUM CHLORIDE 10 MEQ SR TABLET PO SCH ×3 (08:09→21:17)
[2017-01-17] MEDS: SPIRONOLACTONE 25 MG TAB PO SCH (08:09)
[2017-01-17] MEDS: guaiFENesin ER 600 MG TAB PO SCH ×2 (08:10→21:17)
[2017-01-17] MEDS: ALLOPURINOL 300 MG TAB PO SCH (08:10)
[2017-01-17] MEDS: ATENOLOL 25 MG TAB PO SCH (08:10)
[2017-01-17] MEDS ORDERED: INFLUENZA VIRUS VACCINE HIGH DOSE 0.5 ML SYRINGE (90662) IM ONE (09:00)
[2017-01-17] MEDS ORDERED: PNEUMOCOCCAL VACCINE 0.5ML SYRINGE(90732) PNEUMOVAX 23 IM ONE (09:00)
--- NOTE | 2017-01-17 11:43 | IPN ---
DATE: 01/17/2017 Patient states that his breathing is better but not significantly improved and not back to baseline. He still has a productive cough of thick, yellow sputum. No chest pain, pressure, tightness. Ambulating with some difficulty. VITALS: Temperature 96.8, pulse 61, respiratory rate 20, blood pressure 130/70, 94% on 3 liters nasal cannula. GENERALLY: Awake, alert, oriented times three. Answering questions appropriately. No respiratory accessory muscle use. Able to speak in full sentences. LUNGS: Diminished, coarse rhonchi, occasional wheezing. HEART: S1, S2, sinus rhythm. ABDOMEN: Obese, soft, nontender, nondistended. Positive bowel sounds times four quadrants. No rebound, guarding or hepatosplenomegaly. EXTREMITIES: Chronic 2+ pitting edema bilaterally. Laboratory data, microbiology and imaging studies have been reviewed. ASSESSMENT AND PLAN: This is a 66-year-old male with history of obstructive sleep apnea, hypertension, hyperlipidemia, type 2 diabetes, metabolic syndrome, congestive heart failure (CHF), ejection fraction of 60% with preserved ejection fraction, chronic lower extremity edema, asthma, chronic obstructive pulmonary artery disease (COPD), home oxygen dependent 2 liters of oxygen, BMI of 40, obesity, recurrent pseudomonas pneumonia, prosthesis of the left eye, benign prostatic hyperplasia (BPH), status post transurethral resection of prostate (TURP) by Dr. Mckeon who presented to the emergency department on 01/14/2017 with worsening shortness of breath with a cough productive of yellow sputum, denied chest pain, admitted for COPD exacerbation. IMPRESSION: 1. COPD exacerbation. Currently on IV Solu-Medrol, nebulizer treatments, and supplemental oxygen. Obtaining a sputum culture. 2. Moderate bronchiectasis. Acapella, nebulizer treatments. 3. History of congestive heart failure (CHF), diastolic dysfunction with chronic lower extremity edema. Monitor input, output, daily weights, fluid restriction. Resume home dose of diuretics. If no significant diuresis, change to IV dosing during the hospital stay. 4. Elevated liver function tests, most likely secondary to hepatic congestion. Liver ultrasound showed hepatomegaly. 5. Insulin dependent diabetes on Levemir insulin. Consistent carbohydrate diet. Sliding scale with coverage. Prandial glucose goal of 90 to 130, postprandial of less than 180. 6. Dyslipidemia on statin. 7. Chronic kidney disease. Stage III. Renally dosed all medications. Currently at baseline creatinine. Avoid nephrotoxins. 8. Benign prostatic hyperplasia (BPH) status post transurethral resection of prostate (TURP). Continue finasteride. 9. Obesity complicating medical care. BMI of 40. 10. Obstructive sleep apnea (SHANNON). On CPAP, continue home settings. 11. Deep venous thrombosis (DVT) prophylaxis. Low dose Lovenox.
[2017-01-17 14:00] VITALS: BP 132/61
[2017-01-17] MEDS ORDERED: FUROSEMIDE 100 MG/10 ML VIAL (J1940) IV SCH (17:00)
[2017-01-17] MEDS: LEVEMIR (INSULIN DETEMIR) 1 UNITS/0.01ML SC SCH (21:16)
[2017-01-17] MEDS: SIMVASTATIN 20 MG TAB PO SCH (21:17)
[2017-01-17] MEDS: FINASTERIDE 5 MG TAB PO SCH (21:17)
[2017-01-17 21:30] VITALS: BP 168/76
[2017-01-17 22:34] LABS: CALCIUM LEVEL 8.7 MG/DL (8.8-10.2); CREATININE FOR GFR 2.14 MG/DL (0.70-1.30); GLOMERULAR FILTRATION RATE 32.9 (>49); POTASSIUM SERUM 4.8 MEQ/L (3.5-5.1)
[2017-01-18] MEDS: IPRATROPIUM 0.02% SOLN 0.5MG/2.5 ML NEB INH SCH ×6 (03:23→23:41)
[2017-01-18] MEDS: ALBUTEROL SULFATE 2.5 MG/0.5 ML INH NEB SOLN INH SCH ×6 (03:23→23:42)
[2017-01-18 06:00] VITALS: BP 144/62
[2017-01-18 06:05] LABS: BASO % 0.1 % (0.0-1.0); IMMATURE GRANULOCYTE % 1.1 % (0-0); LYMPH # 0.5 10^3/uL (1.5-4.5); LYMPH % 2.9 % (24.0-44.0); MEAN CORPUSCULAR HEMOGLOBIN 29.8 pg (27.0-33.0); MEAN CORPUSCULAR HGB CONC 32.5 g/dl (32.0-36.5); MEAN CORPUSCULAR VOLUME 91.7 fl (80.0-96.0); MONO # 0.8 10^3/uL (0.0-0.8); MONO % 4.8 % (0.0-5.0); NEUTROPHILS # 14.4 10^3/uL (1.8-7.7); NEUTROPHILS % 91.1 % (36.0-66.0); PLATELET COUNT, AUTOMATED 312 10^3/uL (150-450); RED CELL DISTRIBUTION WIDTH 14.1 % (11.5-14.5); WHITE BLOOD COUNT 15.8 10^3/uL (4.0-10.0)
[2017-01-18 06:30] LABS: ALBUMIN 2.8 GM/DL (3.2-5.2); ALBUMIN/GLOBULIN RATIO 0.56 (1.00-1.93); BILIRUBIN,TOTAL 0.4 MG/DL (0.2-1.0); CALCIUM LEVEL 9.6 MG/DL (8.8-10.2); CREATININE FOR GFR 2.11 MG/DL (0.70-1.30); GLOMERULAR FILTRATION RATE 33.4 (>49); MAGNESIUM LEVEL 2.4 MG/DL (1.8-2.4); TOTAL PROTEIN 7.8 GM/DL (6.4-8.2)
[2017-01-18] MEDS ORDERED: DEXTROSE 50% 50 ML SYRINGE IV PRN (07:00)
[2017-01-18] MEDS ORDERED: GLUCOSE 4 GM CHEW TABLET PO PRN (07:00)
[2017-01-18] MEDS: BUDESONIDE 0.5 MG/2 ML INHALATION SUSPENSION INH SCH ×2 (07:15→23:39)
[2017-01-18] MEDS: FORMOTEROL FUMARATE 20 MCG/2 ML INHALATION SOLUTION (PERFOROMIST) INH SCH ×2 (07:15→23:39)
[2017-01-18] MEDS ORDERED: LEVEMIR (INSULIN DETEMIR) 1 UNITS/0.01ML SC ONE ×2 (07:30→20:45)
[2017-01-18] MEDS: HumaLOG INSULIN (NovoLOG) PER UNIT SC SCH ×3 (08:13→17:04)
[2017-01-18] MEDS: ENOXAPARIN 30 MG/0.3 ML SYR (J1650) SC SCH (08:13)
[2017-01-18] MEDS: ASPIRIN 325 MG TAB PO SCH (08:14)
[2017-01-18] MEDS: SENOKOT S TAB PO SCH ×2 (08:14→19:57)
[2017-01-18] MEDS: ALLOPURINOL 300 MG TAB PO SCH (08:14)
[2017-01-18] MEDS: MOXIFLOXACIN 400 MG TAB PO SCH (08:14)
[2017-01-18] MEDS: SPIRONOLACTONE 25 MG TAB PO SCH (08:14)
[2017-01-18] MEDS: FUROSEMIDE 80 MG TAB PO SCH ×2 (08:14→17:27)
[2017-01-18] MEDS: guaiFENesin ER 600 MG TAB PO SCH ×2 (08:14→19:57)
[2017-01-18 08:16] VITALS: BP 127/76
[2017-01-18] MEDS: LOSARTAN 50 MG TAB PO SCH (08:16)
[2017-01-18] MEDS: ATENOLOL 25 MG TAB PO SCH (08:16)
[2017-01-18] MEDS: methylPREDNISolone INJ 125 MG/2 ML VIAL (J2930) IV SCH ×2 (08:40→20:43)
--- NOTE | 2017-01-18 11:57 | IPN ---
DATE OF SERVICE: 01/18/2017 The patient continues to have uncontrolled glucose. He states that his shortness of breath is slightly improved but continues to have rhonchorous breath sounds and sputum productive of yellow-white thick mucus. He denies any chest pain, pressure, or tightness, lightheadedness, dizziness, nausea, vomiting, abdominal pain. Lower extremity edema is improving. He has been net negative since admission. Current weight is 120.4 kg with a peak weight of 131.82 kg. Vital signs: Temperature 97.5, pulse 58, respiratory rate 18, blood pressure 144/62, 92% on 3 liters nasal cannula. Generally, the patient is awake, alert, oriented times three, answering questions appropriately. He has no icterus, no jaundice. Pupils are round, reactive to light and accommodation. Answers questions appropriately. No respiratory accessory muscle use. Able to speak in full sentences. Trachea is midline. Tongue is midline. No thyromegaly. No cervical lymphadenopathy. Lungs are diminished with coarse rhonchi bilaterally. Air entry is equal. Heart: S1, S2, sinus rhythm. No murmurs, rubs, or gallops. Abdomen: Is soft, nontender, nondistended. Obese abdomen. Positive bowel sounds times four quadrants. No rebound, guarding, or hepatosplenomegaly. Extremities: Chronic 2+ pitting edema bilaterally. LABORATORY DATA, MICROBIOLOGY, IMAGING STUDIES: Have been reviewed. Fingersticks 258, 323, and 448. ASSESSMENT AND PLAN: This is a 66-year-old male with history of obstructive sleep apnea on continuous positive airway pressure (CPAP), hypertension, hyperlipidemia, type 2 diabetes, metabolic syndrome, congestive heart failure (CHF), diastolic dysfunction with preserved ejection fraction with preserved systolic function, ejection fraction (EF) of 60%, chronic lower extremity edema, asthma, chronic obstructive pulmonary artery disease (COPD), home oxygen dependent 2 liters, body mass index (BMI) of 40, obesity, obesity hyperventilation syndrome, recurrent pseudomonas pneumonia, bronchiectasis, prosthesis of the left eye, benign prostatic hyperplasia (BPH), status post transurethral resection of prostate (TURP) by Dr. Mckeon, who presented to the emergency room (ER) on 01/14/2017 with worsening shortness of breath, a cough productive of yellow sputum, denied any chest pain, admitted for COPD exacerbation, probable congestive heart failure (CHF) exacerbation. IMPRESSION: 1. Chronic obstructive pulmonary disease exacerbation. Currently on intravenous (IV) Solu-Medrol with resultant steroid-induced hyperglycemia, nebulizer treatments, supplemental oxygen. At this time, the patient has had some improvement clinically. Is continued on nebulizer treatments every 4 hours. Unable to provide a sputum culture. Acapella, incentive spirometry, and titrate the patient's Solu-Medrol accordingly. Due to no significant change in his respiratory status, the patient will be started on antibiotic for its antiinflammatory effect. No signs of acute pneumonia but with significant bronchiectasis. 2. Congestive heart failure (CHF) with preserved systolic function. EF is 60%. The patient had been diuresing well on 80 mg IV twice a day with net negative daily for the past 4 days and decreasing weight from 131.8 kg to 120.4 kg. He has had some improvement. Creatinine is steadily increasing to 0.11. Therefore , will change to his normal twice a day dosing. 3. Type 2 diabetes with steroid-induced hyperglycemia. The patient's insulin will be changed to twice a day dosing and will discontinue insulin sliding scale coverage and will change to short-acting insulin 10 units subcutaneously before food. Goal preprandial glucose of 90-130 and postprandial glucose of 180. Hold insulin for any glucose less than 180. 4. Hypertension, stable. Blood pressure is maintained at 130-140. Had episode of 168/76 yesterday evening due to shortness of breath. The patient is currently on atenolol 25 daily. Will continue with the same. 5. Obesity, complicating medical care. 6. Obstructive sleep apnea. Resume home settings of continuous positive airway pressure (CPAP). 7. Metabolic syndrome. Currently, taking aspirin. Continue treatment for diabetes with goal A1c of 7. Continue on simvastatin. DISPOSITION: Awaiting improvement in respiratory status prior to discharge home. [facility]
[2017-01-18 14:06] VITALS: BP 140/68
[2017-01-18] MEDS ORDERED: HumaLOG INSULIN (NovoLOG) PER UNIT SC ONE (17:15)
[2017-01-18] MEDS: LEVEMIR (INSULIN DETEMIR) 1 UNITS/0.01ML SC SCH (19:56)
[2017-01-18] MEDS: FINASTERIDE 5 MG TAB PO SCH (19:57)
[2017-01-18] MEDS: SIMVASTATIN 20 MG TAB PO SCH (19:57)
[2017-01-18 22:00] VITALS: BP 162/75
[2017-01-19] MEDS: MOXIFLOXACIN 400 MG TAB PO SCH (05:46)
[2017-01-19 06:00] VITALS: BP 139/72
[2017-01-19] MEDS: FORMOTEROL FUMARATE 20 MCG/2 ML INHALATION SOLUTION (PERFOROMIST) INH SCH ×2 (06:08→20:00)
[2017-01-19] MEDS: BUDESONIDE 0.5 MG/2 ML INHALATION SUSPENSION INH SCH ×2 (06:08→20:00)
[2017-01-19] MEDS: IPRATROPIUM 0.02% SOLN 0.5MG/2.5 ML NEB INH SCH ×6 (06:09→23:41)
[2017-01-19] MEDS: ALBUTEROL SULFATE 2.5 MG/0.5 ML INH NEB SOLN INH SCH ×6 (06:09→23:41)
[2017-01-19 08:05] LABS: BASO % 0.2 % (0.0-1.0); IMMATURE GRANULOCYTE % 1.7 % (0-0); LYMPH # 0.7 10^3/uL (1.5-4.5); LYMPH % 3.7 % (24.0-44.0); MEAN CORPUSCULAR HEMOGLOBIN 29.5 pg (27.0-33.0); MEAN CORPUSCULAR HGB CONC 32.2 g/dl (32.0-36.5); MEAN CORPUSCULAR VOLUME 91.8 fl (80.0-96.0); MONO % 5.4 % (0.0-5.0); NEUTROPHILS # 16.7 10^3/uL (1.8-7.7); PLATELET COUNT, AUTOMATED 269 10^3/uL (150-450); RED CELL DISTRIBUTION WIDTH 14.3 % (11.5-14.5); WHITE BLOOD COUNT 18.7 10^3/uL (4.0-10.0)
[2017-01-19 08:30] LABS: ALBUMIN 2.6 GM/DL (3.2-5.2); ALBUMIN/GLOBULIN RATIO 0.58 (1.00-1.93); BILIRUBIN,TOTAL 0.3 MG/DL (0.2-1.0); CALCIUM LEVEL 9.2 MG/DL (8.8-10.2); CREATININE FOR GFR 1.87 MG/DL (0.70-1.30); GLOMERULAR FILTRATION RATE 38.4 (>49); MAGNESIUM LEVEL 2.3 MG/DL (1.8-2.4); POTASSIUM SERUM 4.3 MEQ/L (3.5-5.1); TOTAL PROTEIN 7.1 GM/DL (6.4-8.2)
[2017-01-19] MEDS: HumaLOG INSULIN (NovoLOG) PER UNIT SC SCH ×4 (08:50→21:11)
[2017-01-19] MEDS: ENOXAPARIN 30 MG/0.3 ML SYR (J1650) SC SCH (08:50)
[2017-01-19] MEDS: SPIRONOLACTONE 25 MG TAB PO SCH (08:51)
[2017-01-19] MEDS: guaiFENesin ER 600 MG TAB PO SCH ×2 (08:51→21:11)
[2017-01-19] MEDS: LOSARTAN 50 MG TAB PO SCH (08:51)
[2017-01-19] MEDS: methylPREDNISolone INJ 125 MG/2 ML VIAL (J2930) IV SCH ×2 (08:51→20:04)
[2017-01-19] MEDS: ALLOPURINOL 300 MG TAB PO SCH (08:51)
[2017-01-19] MEDS: SENOKOT S TAB PO SCH ×2 (08:52→21:11)
[2017-01-19] MEDS: ASPIRIN 325 MG TAB PO SCH (08:52)
[2017-01-19] MEDS: ATENOLOL 25 MG TAB PO SCH (08:52)
[2017-01-19] MEDS: FUROSEMIDE 80 MG TAB PO SCH ×2 (08:52→17:32)
[2017-01-19] MEDS: LEVEMIR (INSULIN DETEMIR) 1 UNITS/0.01ML SC SCH ×2 (08:53→21:10)
[2017-01-19 14:00] VITALS: BP 137/69
--- NOTE | 2017-01-19 17:27 | IPN ---
DATE: 01/19/2017 SUBJECTIVE: Patient seen and examined in the room today. Patient stated his breathing is not back to his baseline. Patient still feels significant congestion, and he could not bring anything up. He has been using the Acapella three to four times a day. He does not feel it is helping. He tried the Mucinex previously; however, he stated Mucinex has not been helping him either. Denies any fevers or chills. Continues to have yellowish, thick sputum production. OBJECTIVE: VITAL SIGNS: Temperature 97.3, pulse 50, respirations 16, blood pressure 139/72, pulse oximetry 93% with 3 liters nasal cannula. GENERAL: Mild to moderate distress secondary to persistent shortness of breath. Alert and oriented times three. HEENT: Normocephalic, atraumatic. Extraocular motor grossly intact. CARDIOVASCULAR: Positive S1, S2, regular rate. LUNGS: Diminished breath sounds bilaterally. Positive rhonchi. I cannot appreciate any significant wheezes. ABDOMEN: Soft, nontender, nondistended. Bowel sounds present. EXTREMITIES: Positive pitting edema bilaterally. LABORATORY DATA: WBC 18.7, hemoglobin 15.1, hematocrit 46.9, platelet count is 269. Sodium is 139, potassium 4.3, chloride is 99, carbon dioxide 32, BUN 95, creatinine 1.87, GFR is 38.4, fasting glucose 258. Calcium is 9.2, magnesium 2.3. Total bilirubin 0.3, AST 7, ALT 37, alkaline phosphatase 107, total protein 7.1, albumin 2.6. ASSESSMENT AND PLAN: 1. Congestive heart failure (CHF) exacerbation. Patient is on intravenous (IV) Solu-Medrol. Patient is on nebulizer treatments. Patient is currently on oxygen support. Respiratory panel is negative. Will follow the sputum cultures. On imaging studies, patient did show positive for significant bronchiectasis, bronchitis, and bronchiolitis. Currently patient is on IV antibiotics. Also patient has incentive spirometry in the room. Will continue to encourage use of Acapella to help to clear the secretions. Patient is also on the Mucinex. 2. Congestive heart failure with preserved ejection fraction (EF). Patient has been on Lasix diuresis. Patient was noted to have good decrease on the weight. Currently patient is on his home dose of Lasix, which is Lasix 80 mg by mouth twice a day. Patient continues to have good net balance. 3. Type 2 diabetes. Currently, patient has steroid-induced uncontrolled hyperglycemia. Patient's long-acting insulin has been adjusted continuously, and patient will be covered with sliding scale. Patient is on consistent-carbohydrate diet. 4. Hypertension. Blood pressure in the satisfactory range. Patient is on atenolol, Lasix, losartan, and spironolactone. 5. Obesity, obstructive sleep apnea (SHANNON), on CPAP. 6. Acute kidney injury secondary to fluid overload. Renal function is improving with diuresis. Continue to follow. 7. Deep vein thrombosis (DVT) prophylaxis. Patient is on thromboembolic deterrents (TEDs) and sequential compression devices.
[2017-01-19] MEDS: SIMVASTATIN 20 MG TAB PO SCH (21:11)
[2017-01-19] MEDS: FINASTERIDE 5 MG TAB PO SCH (21:11)
[2017-01-19 22:00] VITALS: BP 152/74
[2017-01-20] MEDS: ALBUTEROL SULFATE 2.5 MG/0.5 ML INH NEB SOLN INH SCH ×7 (03:33→23:21)
[2017-01-20] MEDS: IPRATROPIUM 0.02% SOLN 0.5MG/2.5 ML NEB INH SCH ×6 (03:33→23:21)
[2017-01-20] MEDS: MOXIFLOXACIN 400 MG TAB PO SCH (05:26)
[2017-01-20 06:00] VITALS: BP 138/74
[2017-01-20 07:33] LABS: BASO # 0.1 10^3/uL (0.0-0.2); BASO % 0.3 % (0.0-1.0); IMMATURE GRANULOCYTE % 2.2 % (0-0); LYMPH # 0.7 10^3/uL (1.5-4.5); LYMPH % 3.3 % (24.0-44.0); MEAN CORPUSCULAR HEMOGLOBIN 29.6 pg (27.0-33.0); MEAN CORPUSCULAR HGB CONC 32.4 g/dl (32.0-36.5); MEAN CORPUSCULAR VOLUME 91.4 fl (80.0-96.0); MONO # 0.9 10^3/uL (0.0-0.8); MONO % 4.3 % (0.0-5.0); NEUTROPHILS # 19.7 10^3/uL (1.8-7.7); NEUTROPHILS % 89.9 % (36.0-66.0); PLATELET COUNT, AUTOMATED 260 10^3/uL (150-450); RED CELL DISTRIBUTION WIDTH 14.3 % (11.5-14.5)
[2017-01-20 07:48] LABS: ADD MANUAL DIFFER NO; DIFF SLIDE NUMBER 13
[2017-01-20 08:04] LABS: ALBUMIN 2.9 GM/DL (3.2-5.2); ALBUMIN/GLOBULIN RATIO 0.62 (1.00-1.93); BILIRUBIN,TOTAL 0.4 MG/DL (0.2-1.0); CALCIUM LEVEL 9.5 MG/DL (8.8-10.2); CREATININE FOR GFR 1.88 MG/DL (0.70-1.30); GLOMERULAR FILTRATION RATE 38.2 (>49); MAGNESIUM LEVEL 2.6 MG/DL (1.8-2.4); POTASSIUM SERUM 4.3 MEQ/L (3.5-5.1); TOTAL PROTEIN 7.6 GM/DL (6.4-8.2)
[2017-01-20] MEDS: HumaLOG INSULIN (NovoLOG) PER UNIT SC SCH ×4 (08:59→20:44)
[2017-01-20] MEDS: methylPREDNISolone INJ 125 MG/2 ML VIAL (J2930) IV SCH ×2 (08:59→20:44)
[2017-01-20] MEDS: SPIRONOLACTONE 25 MG TAB PO SCH (09:00)
[2017-01-20] MEDS: ENOXAPARIN 30 MG/0.3 ML SYR (J1650) SC SCH (09:00)
[2017-01-20] MEDS: LEVEMIR (INSULIN DETEMIR) 1 UNITS/0.01ML SC SCH ×2 (09:00→20:44)
[2017-01-20] MEDS: guaiFENesin ER 600 MG TAB PO SCH ×2 (09:01→20:45)
[2017-01-20] MEDS: SENOKOT S TAB PO SCH ×2 (09:01→20:45)
[2017-01-20] MEDS: ALLOPURINOL 300 MG TAB PO SCH (09:01)
[2017-01-20] MEDS: LOSARTAN 50 MG TAB PO SCH (09:01)
[2017-01-20] MEDS: FUROSEMIDE 80 MG TAB PO SCH ×2 (09:01→17:40)
[2017-01-20] MEDS: ATENOLOL 25 MG TAB PO SCH (09:01)
[2017-01-20] MEDS: ASPIRIN 325 MG TAB PO SCH (09:01)
[2017-01-20] MEDS: BUDESONIDE 0.5 MG/2 ML INHALATION SUSPENSION INH SCH ×2 (09:06→19:51)
[2017-01-20] MEDS: GENTAMICIN SULF INJ 80MG/2ML VIAL (J1580) NEB SCH ×2 (11:31→19:51)
[2017-01-20] MEDS: FORMOTEROL FUMARATE 20 MCG/2 ML INHALATION SOLUTION (PERFOROMIST) INH SCH ×2 (11:32→19:57)
[2017-01-20] MEDS ORDERED: MOM 30ML SUSPENSION UDC PO PRN (13:00)
[2017-01-20 14:00] VITALS: BP 148/71
--- NOTE | 2017-01-20 16:31 | IPN ---
DATE: 01/20/2017 SUBJECTIVE: Patient seen and examined in the room today. Patient stated he has been trying to use the incentive spirometry and Acapella three times a day. Patient continues to have thick, yellowish sputum production. Per patient, he feels some improvement compared to yesterday. Patient is being followed with Dr. Pimentel in the outpatient setting. Patient has a chronic pseudomonas lung infection. Patient has been using 28 days of gentamicin nebulizer treatment and 28 days off between each treatment. Patient has supposed to start next 28-day gentamicin nebulizer treatment on 01/26/2017. OBJECTIVE: VITAL SIGNS: Temperature is 96.5, pulse 64, respirations 18, blood pressure 138/74, pulse oximetry 93% with 2 liters nasal cannula. GENERAL: No sign of acute distress, alert and oriented times three. HEENT: Normocephalic, atraumatic. Extraocular motor grossly intact. CARDIOVASCULAR: Positive S1, S2, regular rate. LUNGS: Coarse lung sounds bilaterally. There are no expiratory wheezes. ABDOMEN: Soft, nontender, nondistended. Bowel sounds present. EXTREMITIES: Positive pitting edema bilaterally. LABORATORY DATA: WBC 22, hematocrit 15.2, hematocrit is 46.9, platelet count is 260. Sodium is 139, potassium 4.3, chloride is 97, carbon dioxide 35, BUN is 89, creatinine is 1.88, GFR is 38.2, fasting glucose 275, calcium is 9.5, magnesium 2.6. Total bilirubin is 0.4, AST 12, ALT 33, alkaline phosphatase is 107, total protein 7.6, albumin 2.9. ASSESSMENT AND PLAN: 1. Chronic obstructive pulmonary disease (COPD) exacerbation. Patient is currently on intravenous (IV) Solu-Medrol. Patient requires nebulizer treatment every 4 hours. Patient does have chronic pseudomonas infection. Currently sputum culture preliminary shows gram-negative rods. Patient is started on Avelox. I discussed the situation with the patient's global consumer sector vice president, Dr. Pimentel. Patient is scheduled to have 28 days gentamicin treatment starting 01/26/2017. Due to patient's acute issues, we can start him on the gentamicin nebulizer today. At baseline, patient is receiving gentamicin nebulizer treatment for 28 days and then off for [address] scan shows positive for significant bronchiectasis, bronchitis, and bronchiolitis. We encourage the patient to continue incentive spirometry and also the Acapella. Patient does continue to have yellowish sputum production. Patient continued on Mucinex. 2. Congestive heart failure exacerbation. Patient has a preserved ejection fraction (EF). Patient has been on the Lasix diuresis. Patient is currently on Lasix 80 mg by mouth twice a day. Patient does have a significant negative fluid balance since admission. Continue to monitor. 3. Type 2 diabetes. Currently, patient has steroid-induced controlled hyperglycemia. Patient's long-acting insulin has been adjusted accordingly. Once patient's respiratory status shows more improvement will start to taper down steroids and will also continue adjusting long-acting insulin. Currently patient is also covered with sliding scale on consistent-carbohydrate diet. 4. Hypertension. Will continue to monitor. Patient is on atenolol, Lasix, losartan, and spironolactone. 5. Obesity. 6. Obstructive sleep apnea (SHANNON), on continuous positive airway pressure (CPAP). 7. Acute kidney injury secondary to fluid overload. Currently patient is improving with diuresis. Continue to follow. 8. Deep vein thrombosis (DVT) prophylaxis, on thromboembolic deterrents (TEDs) and sequential compression devices.
[2017-01-20 17:42] VITALS: BP 160/81
[2017-01-20] MEDS: FINASTERIDE 5 MG TAB PO SCH (20:45)
[2017-01-20] MEDS: SIMVASTATIN 20 MG TAB PO SCH (20:45)
[2017-01-20 22:00] VITALS: BP 138/72
[2017-01-21] MEDS: ALBUTEROL SULFATE 2.5 MG/0.5 ML INH NEB SOLN INH SCH ×5 (03:07→22:22)
[2017-01-21] MEDS: IPRATROPIUM 0.02% SOLN 0.5MG/2.5 ML NEB INH SCH ×5 (03:07→22:22)
[2017-01-21] MEDS: MOXIFLOXACIN 400 MG TAB PO SCH (05:13)
[2017-01-21 06:00] VITALS: BP 148/62
[2017-01-21] MEDS: BUDESONIDE 0.5 MG/2 ML INHALATION SUSPENSION INH SCH ×2 (07:12→20:49)
[2017-01-21] MEDS: FORMOTEROL FUMARATE 20 MCG/2 ML INHALATION SOLUTION (PERFOROMIST) INH SCH ×2 (07:12→20:50)
[2017-01-21] MEDS: GENTAMICIN SULF INJ 80MG/2ML VIAL (J1580) NEB SCH ×2 (07:12→20:50)
[2017-01-21 07:13] LABS: BASO # 0.1 10^3/uL (0.0-0.2); BASO % 0.2 % (0.0-1.0); IMMATURE GRANULOCYTE % 2.2 % (0-0); LYMPH # 0.5 10^3/uL (1.5-4.5); LYMPH % 1.8 % (24.0-44.0); MEAN CORPUSCULAR HEMOGLOBIN 29.5 pg (27.0-33.0); MEAN CORPUSCULAR VOLUME 92.1 fl (80.0-96.0); MONO # 0.8 10^3/uL (0.0-0.8); MONO % 3.1 % (0.0-5.0); NEUTROPHILS # 23.6 10^3/uL (1.8-7.7); NEUTROPHILS % 92.7 % (36.0-66.0); PLATELET COUNT, AUTOMATED 263 10^3/uL (150-450); RED CELL DISTRIBUTION WIDTH 14.5 % (11.5-14.5); WHITE BLOOD COUNT 25.5 10^3/uL (4.0-10.0)
[2017-01-21 07:40] LABS: ALBUMIN 2.7 GM/DL (3.2-5.2); ALBUMIN/GLOBULIN RATIO 0.59 (1.00-1.93); BILIRUBIN,TOTAL 0.4 MG/DL (0.2-1.0); CALCIUM LEVEL 8.9 MG/DL (8.8-10.2); CREATININE FOR GFR 1.94 MG/DL (0.70-1.30); GLOMERULAR FILTRATION RATE 36.8 (>49); MAGNESIUM LEVEL 2.6 MG/DL (1.8-2.4); POTASSIUM SERUM 4.5 MEQ/L (3.5-5.1); TOTAL PROTEIN 7.3 GM/DL (6.4-8.2)
[2017-01-21] MEDS: ASPIRIN 325 MG TAB PO SCH (07:59)
[2017-01-21] MEDS: guaiFENesin ER 600 MG TAB PO SCH ×2 (07:59→22:23)
[2017-01-21] MEDS: ALLOPURINOL 300 MG TAB PO SCH (07:59)
[2017-01-21] MEDS: methylPREDNISolone INJ 125 MG/2 ML VIAL (J2930) IV SCH ×2 (07:59→20:29)
[2017-01-21] MEDS: LOSARTAN 50 MG TAB PO SCH (08:00)
[2017-01-21] MEDS: SENOKOT S TAB PO SCH ×2 (08:00→20:28)
[2017-01-21] MEDS: FUROSEMIDE 80 MG TAB PO SCH ×2 (08:00→17:32)
[2017-01-21] MEDS: ATENOLOL 25 MG TAB PO SCH (08:00)
[2017-01-21] MEDS: SPIRONOLACTONE 25 MG TAB PO SCH (08:00)
[2017-01-21] MEDS: LEVEMIR (INSULIN DETEMIR) 1 UNITS/0.01ML SC SCH ×2 (08:01→20:28)
[2017-01-21] MEDS: ENOXAPARIN 30 MG/0.3 ML SYR (J1650) SC SCH (08:01)
[2017-01-21] MEDS: HumaLOG INSULIN (NovoLOG) PER UNIT SC SCH ×4 (08:01→22:24)
[2017-01-21 14:00] VITALS: BP 146/66
--- NOTE | 2017-01-21 17:55 | IPN ---
DATE: 01/21/2017 SUBJECTIVE: The patient is seen and examined in the room today. The patient stated that he has been using Acapella and incentive spirometry as much as he can. The patient continues to have yellowish sputum production. The patient feels his breathing is improving compared to yesterday. OBJECTIVE: VITAL SIGNS: Temperature is 97.2, pulse is 70, respirations 18, blood pressure is 148/62, pulse oximetry is 91% with three liters nasal cannula. GENERAL: Still mild to moderate distress secondary to persistent shortness of breath, alert and oriented times three. HEENT: Normocephalic, atraumatic. Extraocular motor grossly intact. CARDIOVASCULAR: Positive S1, S2, regular rate. LUNGS: Coarse lung sounds bilaterally. There are some expiratory wheezes. ABDOMEN: Soft, nontender, nondistended. Bowel sounds present. No rebound. No guarding. EXTREMITIES: Positive pitting edema bilaterally. LABORATORY DATA: WBC is 25.5, hematocrit is 15.6, hematocrit is 48.7, platelet count is 263. Sodium is 139, potassium 4.5, chloride is 98, carbon dioxide is 34, BUN is 85, creatinine is 1.94, GFR is 36.8, fasting glucose 288, calcium is 8.9, magnesium 2.6. Total bilirubin is 0.4, AST 19, ALT 30, alkaline phosphatase is 111, total protein 7.3, albumin 2.7. ASSESSMENT AND PLAN: 1. Chronic obstructive pulmonary disease (COPD) exacerbation. The patient is currently on the intravenous (IV) Solu-Medrol. The patient continues to require nebulizer treatment every four hours. The patient does have a chronic Pseudomonas infection. Sputum culture preliminary shows Gram-negative rods. The patient is started on Avelox. I also discussed the case with the patient's dietary assistant, Dr. Pimentel, and we also started the gentamicin nebulizer treatments. At the baseline, the patient is using gentamicin nebulizer treatment as suppressive therapy. The patient will be using continuously for 28 days and then the patient will be off for 28 days. According to the patient's original schedule, the patient was supposed to start on the gentamicin nebulizer treatments starting on 01/26/2017. The patient will continue using Mucinex. Recommend Acapella and also incentive spirometry. 2. Congestive heart failure exacerbation. The patient has a preserved ejection fraction (EF). The patient has been on the Lasix diuresis. Per our records, the patient continued to have negative outputs. In the last 24 hours, the patient has a negative 1.6 liter net fluid balance. 3. Type 2 diabetes. Currently, the patient has been receiving IV Solu-Medrol and there is difficulty controlling the patient's glucose level. We will continue to adjust the long-acting insulin accordingly. The patient will be covered with a sliding scale and the patient is on a consistent-carbohydrate diet. 4. Steroid-induced leukocytosis. At this moment, the patient will benefit from IV Solu-Medrol. We will start tapering as soon as the patient shows improvement of the respiratory status. 5. Hypertension, on atenolol, Lasix, losartan, and spironolactone. 6. Obesity. 7. Obstructive sleep apnea (SHANNON), on continuous positive airway pressure (CPAP). 8. Acute kidney injury. The patient is currently being diuresed with Lasix regimen. Continue to follow. 9. Deep vein thrombosis (DVT) prophylaxis, on thromboembolic deterrents (TEDs) and sequential compression device.
[2017-01-21] MEDS: SIMVASTATIN 20 MG TAB PO SCH (20:28)
[2017-01-21] MEDS: FINASTERIDE 5 MG TAB PO SCH (20:28)
[2017-01-21 22:00] VITALS: BP 131/72
[2017-01-22] MEDS: IPRATROPIUM 0.02% SOLN 0.5MG/2.5 ML NEB INH SCH ×7 (00:39→23:14)
[2017-01-22] MEDS: ALBUTEROL SULFATE 2.5 MG/0.5 ML INH NEB SOLN INH SCH ×7 (00:39→23:14)
[2017-01-22] MEDS: MOXIFLOXACIN 400 MG TAB PO SCH (05:19)
[2017-01-22 06:00] VITALS: BP 125/70
[2017-01-22 08:04] LABS: BASO % 0.1 % (0.0-1.0); IMMATURE GRANULOCYTE % 2.8 % (0-0); LYMPH # 0.6 10^3/uL (1.5-4.5); LYMPH % 2.1 % (24.0-44.0); MEAN CORPUSCULAR HEMOGLOBIN 29.6 pg (27.0-33.0); MEAN CORPUSCULAR HGB CONC 31.6 g/dl (32.0-36.5); MEAN CORPUSCULAR VOLUME 93.7 fl (80.0-96.0); MONO # 0.9 10^3/uL (0.0-0.8); MONO % 3.2 % (0.0-5.0); NEUTROPHILS # 24.5 10^3/uL (1.8-7.7); NEUTROPHILS % 91.8 % (36.0-66.0); PLATELET COUNT, AUTOMATED 247 10^3/uL (150-450); RED CELL DISTRIBUTION WIDTH 14.4 % (11.5-14.5); WHITE BLOOD COUNT 26.7 10^3/uL (4.0-10.0)
[2017-01-22] MEDS: FORMOTEROL FUMARATE 20 MCG/2 ML INHALATION SOLUTION (PERFOROMIST) INH SCH ×2 (08:04→19:22)
[2017-01-22] MEDS: BUDESONIDE 0.5 MG/2 ML INHALATION SUSPENSION INH SCH ×2 (08:04→19:22)
[2017-01-22] MEDS: methylPREDNISolone INJ 125 MG/2 ML VIAL (J2930) IV SCH (08:20)
[2017-01-22] MEDS: LOSARTAN 50 MG TAB PO SCH (08:20)
[2017-01-22] MEDS: ASPIRIN 325 MG TAB PO SCH (08:20)
[2017-01-22] MEDS: HumaLOG INSULIN (NovoLOG) PER UNIT SC SCH ×4 (08:20→20:22)
[2017-01-22] MEDS: ATENOLOL 25 MG TAB PO SCH (08:21)
[2017-01-22] MEDS: ALLOPURINOL 300 MG TAB PO SCH (08:21)
[2017-01-22] MEDS: SPIRONOLACTONE 25 MG TAB PO SCH (08:21)
[2017-01-22] MEDS: guaiFENesin ER 600 MG TAB PO SCH ×2 (08:21→20:22)
[2017-01-22] MEDS: SENOKOT S TAB PO SCH ×2 (08:21→20:22)
[2017-01-22] MEDS: FUROSEMIDE 80 MG TAB PO SCH ×2 (08:21→17:18)
[2017-01-22] MEDS: ENOXAPARIN 30 MG/0.3 ML SYR (J1650) SC SCH (08:22)
[2017-01-22] MEDS: LEVEMIR (INSULIN DETEMIR) 1 UNITS/0.01ML SC SCH ×2 (08:22→20:21)
[2017-01-22 08:23] LABS: CALCIUM LEVEL 9.2 MG/DL (8.8-10.2); CREATININE FOR GFR 1.86 MG/DL (0.70-1.30); GLOMERULAR FILTRATION RATE 38.7 (>49); POTASSIUM SERUM 4.6 MEQ/L (3.5-5.1)
[2017-01-22] MEDS: GENTAMICIN SULF INJ 80MG/2ML VIAL (J1580) NEB SCH ×2 (11:13→19:22)
[2017-01-22 14:00] VITALS: BP 141/66
--- NOTE | 2017-01-22 15:35 | IPN ---
DATE: 01/22/2017 SUBJECTIVE: The patient is seen and examined in the room today. The patient stated that he breathing shows some improvement. Still has a significant cough. Patient has been using incentive spirometry and Acapella. Continues to bring up yellowish purulent sputum. OBJECTIVE: VITAL SIGNS: Temperature is 97.2, pulse is 65, respirations 18, blood pressure is 125/70, pulse oximetry is 95% with two liters nasal cannula. GENERAL: No sign of acute distreses. Alert and oriented times three. HEENT: Normocephalic, atraumatic. Extraocular motor grossly intact. CARDIOVASCULAR: Positive S1, S2, regular rate. LUNGS: Coarse lung sounds bilaterally. Some expiratory wheezes. ABDOMEN: Soft, nontender, nondistended. Bowel sounds present. No rebound. No guarding. EXTREMITIES: Positive pitting edema bilaterally. LABORATORY DATA: WBC is 26.7, hemoglobin is 15.4, hematocrit is 48.7, platelet count is 247. Sodium is 143, potassium 4.6, chloride is 99, carbon dioxide is 37, BUN is 86, creatinine is 1.86, GFR is 38.7, fasting glucose 230, calcium is 9.2. C reactive protein is 0.67. Sputum culture results shows pseudomonas. ASSESSMENT AND PLAN: 1. Chronic obstructive pulmonary disease (COPD) exacerbation. The patient continues to show clinical improvement. We will start tapering down the steroids. Still requires nebulizer treatment every 4 hours. Patient has a chronic Pseudomonas infection. Sputum culture final result came back positive for Pseudomonas. Patient is on Avelox. Patient also started on gentamicin nebulizer treatment. Case was also discussed with the patient's bass singer, Dr. Pimentel. The patient will continue to use Mucinex. Continue to encourage incentive spirometry and Acapella as tolerated. On the imaging study, patient shows bronchiatelectasis. 2. Congestive heart failure exacerbation. The patient has a preserved ejection fraction (EF). The patient has is on the Lasix diuresis. Continue to monitor patient's input and output. 3. Type 2 diabetes. We will start tapering down the patient's IV Solu Medrol and patient has been having uncontrolled glucose due to the concurrent steroid use. Patient is covered with insulin sliding scale. Patient on consistent carbohydrate diet. 4. Steroid-induced leukocytosis. The patient has been on IV Solu-Medrol. We will start steroid taper. Patient does not have any fever or chills. C reactive protein shows mild elevation. 5. Hypertension, on atenolol, Lasix, losartan, and spironolactone. 6. Obesity. 7. Obstructive sleep apnea (SHANNON), on continuous positive airway pressure (CPAP). 8. Acute kidney injury. Continue to ,monitor. 9. Deep vein thrombosis (DVT) prophylaxis, on thromboembolic deterrents (TEDs) and sequential compression device. MTDD
[2017-01-22] MEDS: predniSONE 50 MG TAB PO SCH (20:22)
[2017-01-22] MEDS: FINASTERIDE 5 MG TAB PO SCH (20:22)
[2017-01-22] MEDS: SIMVASTATIN 20 MG TAB PO SCH (20:22)
[2017-01-22 22:00] VITALS: BP 133/65
[2017-01-23] MEDS: IPRATROPIUM 0.02% SOLN 0.5MG/2.5 ML NEB INH SCH ×6 (03:13→23:44)
[2017-01-23] MEDS: ALBUTEROL SULFATE 2.5 MG/0.5 ML INH NEB SOLN INH SCH ×8 (03:13→23:44)
[2017-01-23 06:00] VITALS: BP 138/71
[2017-01-23 06:56] LABS: MEAN CORPUSCULAR HEMOGLOBIN 29.3 pg (27.0-33.0); MEAN CORPUSCULAR VOLUME 91.7 fl (80.0-96.0); RED CELL DISTRIBUTION WIDTH 14.5 % (11.5-14.5); WHITE BLOOD COUNT 25.9 10^3/uL (4.0-10.0)
[2017-01-23 07:18] LABS: CALCIUM LEVEL 8.8 MG/DL (8.8-10.2); CREATININE FOR GFR 1.68 MG/DL (0.70-1.30); GLOMERULAR FILTRATION RATE 43.5 (>49); POTASSIUM SERUM 3.8 MEQ/L (3.5-5.1)
[2017-01-23] MEDS: GENTAMICIN SULF INJ 80MG/2ML VIAL (J1580) NEB SCH ×2 (07:25→19:17)
[2017-01-23] MEDS: BUDESONIDE 0.5 MG/2 ML INHALATION SUSPENSION INH SCH ×2 (07:25→19:16)
[2017-01-23] MEDS: FORMOTEROL FUMARATE 20 MCG/2 ML INHALATION SOLUTION (PERFOROMIST) INH SCH ×2 (07:25→19:16)
[2017-01-23] MEDS: ASPIRIN 325 MG TAB PO SCH (09:18)
[2017-01-23] MEDS: LEVEMIR (INSULIN DETEMIR) 1 UNITS/0.01ML SC SCH ×2 (09:18→21:03)
[2017-01-23] MEDS: HumaLOG INSULIN (NovoLOG) PER UNIT SC SCH ×4 (09:18→21:03)
[2017-01-23] MEDS: SPIRONOLACTONE 25 MG TAB PO SCH (09:19)
[2017-01-23] MEDS: LOSARTAN 50 MG TAB PO SCH (09:19)
[2017-01-23] MEDS: guaiFENesin ER 600 MG TAB PO SCH ×2 (09:19→21:03)
[2017-01-23] MEDS: ATENOLOL 25 MG TAB PO SCH (09:19)
[2017-01-23] MEDS: SENOKOT S TAB PO SCH ×2 (09:19→21:03)
[2017-01-23] MEDS: predniSONE 50 MG TAB PO SCH (09:20)
[2017-01-23] MEDS: ENOXAPARIN 30 MG/0.3 ML SYR (J1650) SC SCH (09:20)
[2017-01-23] MEDS: FUROSEMIDE 80 MG TAB PO SCH ×2 (09:20→17:05)
[2017-01-23] MEDS: ALLOPURINOL 300 MG TAB PO SCH (09:20)
[2017-01-23 14:00] VITALS: BP 149/71
--- NOTE | 2017-01-23 15:06 | IPN ---
DATE: 01/23/2017 SUBJECTIVE: The patient seen and examined in the room today. Continues to have yellowish sputum production. Per patient, his breathing shows some improvement. Denies any fever or chills. OBJECTIVE: VITAL SIGNS: Temperature is 96.4, pulse 64, respirations 20, blood pressure 138/71, pulse oximetry 94% on room air. GENERAL: Morbid obese, no acute distress. Alert and oriented times three. HEENT: Normocephalic, atraumatic. Extraocular motor grossly intact. CARDIOVASCULAR: Positive S1, S2. Regular rate. LUNGS: Coarse lung sounds bilaterally. No expiratory wheezes. ABDOMEN: Soft, nontender, nondistended. Bowel sounds present. EXTREMITIES: Mild pitting edema bilaterally. Compression stockings in place. LABORATORY DATA: WBC 25.9, hemoglobin 15.6, hematocrit 48.8, platelet count 232. Sodium 143, potassium 3.8, chloride 101, carbon dioxide 34, BUN 81, creatinine 1.68, GFR 43.5, fasting glucose 186, calcium 8.8. ASSESSMENT AND PLAN: 1. Chronic obstructive pulmonary disease (COPD) exacerbation. Continues to show slow clinical improvement. We will continue to taper the patient's steroids. Continue nebulizer treatments every four hours as needed. Chronic pseudomonas infection. Sputum culture result came back positive for pseudomonas. Was on avelox. The patient was also started on gentamicin nebulizer treatments. Continue Mucinex. On the imaging study, patient shown to have bronchiectasis also. Recommend use incentive spirometry and Acapella as needed. 3. Congestive heart failure exacerbation with preserved ejection fraction (EF). On Lasix and spironolactone. The patient continues to have net-negative output. The patient's breathing is improving. Renal function is also improving. 4. Steroid-induced hyperglycemia. Will start to taper steroids. Glucose is in better control. The patient does have a history of diabetes. 5. Type 2 diabetes. The patient is on long-acting insulin covered with sliding scale and consistent carbohydrate diet. It is easier to control the patient's glucose level since tapering of the steroids. 6. Steroid-induced leukocytosis improving. No fever, no chills. C-reactive protein showed mild elevation. 7. Hypertension. On atenolol, Lasix, spironolactone and losartan. 8. Obesity. 9. Obstructive sleep apnea (SHANNON) on continuous positive airway pressure (CPAP). 10. Acute kidney injury, improving. 11. Deep venous thrombosis (DVT) prophylaxis on thromboembolism deterrent stockings (TEDs) and sequential compression device. MTDD
[2017-01-23] MEDS: SIMVASTATIN 20 MG TAB PO SCH (21:03)
[2017-01-23] MEDS: FINASTERIDE 5 MG TAB PO SCH (21:03)
[2017-01-23] MEDS: predniSONE 20 MG TAB PO SCH (21:03)
[2017-01-23 22:00] VITALS: BP 136/69
[2017-01-24] MEDS: ALBUTEROL SULFATE 2.5 MG/0.5 ML INH NEB SOLN INH SCH ×6 (03:24→23:44)
[2017-01-24] MEDS: IPRATROPIUM 0.02% SOLN 0.5MG/2.5 ML NEB INH SCH ×6 (03:24→23:44)
[2017-01-24 06:00] VITALS: BP 150/62
[2017-01-24 07:09] LABS: MEAN CORPUSCULAR HEMOGLOBIN 29.7 pg (27.0-33.0); MEAN CORPUSCULAR HGB CONC 31.6 g/dl (32.0-36.5); MEAN CORPUSCULAR VOLUME 93.9 fl (80.0-96.0); RED CELL DISTRIBUTION WIDTH 14.6 % (11.5-14.5); WHITE BLOOD COUNT 23.7 10^3/uL (4.0-10.0)
[2017-01-24] MEDS: GENTAMICIN SULF INJ 80MG/2ML VIAL (J1580) NEB SCH ×2 (07:22→19:15)
[2017-01-24] MEDS: BUDESONIDE 0.5 MG/2 ML INHALATION SUSPENSION INH SCH ×2 (07:22→19:15)
[2017-01-24] MEDS: FORMOTEROL FUMARATE 20 MCG/2 ML INHALATION SOLUTION (PERFOROMIST) INH SCH ×2 (07:22→19:15)
[2017-01-24 07:27] LABS: CALCIUM LEVEL 8.8 MG/DL (8.8-10.2); CREATININE FOR GFR 1.61 MG/DL (0.70-1.30); GLOMERULAR FILTRATION RATE 45.7 (>49); POTASSIUM SERUM 4.1 MEQ/L (3.5-5.1)
[2017-01-24] MEDS: SPIRONOLACTONE 25 MG TAB PO SCH (07:54)
[2017-01-24] MEDS: LOSARTAN 50 MG TAB PO SCH (07:54)
[2017-01-24] MEDS: ASPIRIN 325 MG TAB PO SCH (07:55)
[2017-01-24] MEDS: FUROSEMIDE 80 MG TAB PO SCH ×2 (07:55→17:33)
[2017-01-24] MEDS: SENOKOT S TAB PO SCH ×2 (07:55→20:53)
[2017-01-24] MEDS: ALLOPURINOL 300 MG TAB PO SCH (07:55)
[2017-01-24] MEDS: guaiFENesin ER 600 MG TAB PO SCH ×2 (07:55→20:53)
[2017-01-24] MEDS: ATENOLOL 25 MG TAB PO SCH (07:56)
[2017-01-24] MEDS: predniSONE 20 MG TAB PO SCH (07:56)
[2017-01-24] MEDS: HumaLOG INSULIN (NovoLOG) PER UNIT SC SCH ×4 (07:57→20:54)
[2017-01-24] MEDS: ENOXAPARIN 30 MG/0.3 ML SYR (J1650) SC SCH (07:57)
[2017-01-24] MEDS: LEVEMIR (INSULIN DETEMIR) 1 UNITS/0.01ML SC SCH ×2 (07:58→20:54)
[2017-01-24 14:00] VITALS: BP 139/63
--- NOTE | 2017-01-24 16:06 | IPN ---
DATE: 01/24/2017 SUBJECTIVE: Patient seen and examined in the room today. Patient was taking a nap on his recliner, only using nasal cannula. When I asked the patient when was the last time he used his continuous positive airway pressure (CPAP), he stated it was approximately 2 days ago, and patient stated his breathing is improving. Patient has been walking around the hallway for exercise. Patient has been using spirometry and Acapella. Continues having yellowish sputum production. OBJECTIVE: VITAL SIGNS: Temperature 96.8, pulse 70, blood pressure 150/62, pulse oximetry 92% with two liters nasal cannula. GENERAL: Morbidly obese, no sign of acute distress, alert and oriented times three. HEENT: Normocephalic, atraumatic. Extraocular motors grossly intact. CARDIOVASCULAR: Positive S1, S2, regular rate. LUNGS: Coarse sounds bilaterally, some mild expiratory wheezes. ABDOMEN: Soft, nontender, nondistended. Bowel sounds present. EXTREMITIES: Mild pitting edema bilaterally. Compression stockings in place. LABORATORY DATA: WBC 23.7, hemoglobin 15.6, hematocrit 49.4, platelet count 217. Sodium 144, potassium 4.1, chloride 100, carbon dioxide 39, BUN 71, creatinine 1.61, GFR 45.7, fasting glucose 142, calcium 8.8. ASSESSMENT AND PLAN: 1. Chronic obstructive pulmonary disease (COPD) exacerbation. Continues to show clinical improvements. Continue to taper steroids. Continue to use nebulizer treatment every 4 hours as needed. Currently, patient is on Avelox and gentamicin and nebulizer treatments. 2. Chronic pseudomonas infection. Sputum culture came back positive for pseudomonas. was on Avelox previously. started on gentamicin nebulizer treatments. Continue Mucinex. Patient was shown to have bronchiectasis on imaging study. Recommend continued use of incentive spirometry, Acapella. 3. Congestive heart failure exacerbation. Patient has a preserved ejection fraction (PF). Patient is currently on home dose spironolactone and Lasix. Patient continues to have negative fluid balance. 4. Steroid induced hyperglycemia. Patient has type 2 diabetes. It has been very difficult to control the patient's glucose level previously. Since the steroid taper, patient's glucose level has been controlled better. 5. Steroid induced leukocytosis. Since taper of the steroids, white count level is also improving. 6. Hypertension. On atenolol, Lasix, spironolactone, and losartan. 7. Obstructive sleep apnea (SHANNON). On obstructive sleep apnea (SHANNON) protocol. Patient has been using continuous positive airway pressure (CPAP) intermittently per documentation. Compliance may be an issue. 8. Morbid obesity. 9. Acute kidney injury, improving. Patient continues to have negative fluid balance. Patient is on home diuretic regimen. 10. Deep venous thrombosis (DVT) prophylaxis. On sequential compression device. MTDD
[2017-01-24] MEDS: SIMVASTATIN 20 MG TAB PO SCH (20:53)
[2017-01-24] MEDS: FINASTERIDE 5 MG TAB PO SCH (20:53)
[2017-01-24 22:00] VITALS: BP 140/93
[2017-01-25] MEDS: IPRATROPIUM 0.02% SOLN 0.5MG/2.5 ML NEB INH SCH ×5 (03:55→20:00)
[2017-01-25] MEDS: ALBUTEROL SULFATE 2.5 MG/0.5 ML INH NEB SOLN INH SCH ×5 (03:55→20:00)
[2017-01-25 06:00] VITALS: BP 136/69
[2017-01-25] MEDS ORDERED: MOXIFLOXACIN 400 MG TAB PO SCH (06:00)
[2017-01-25 06:48] LABS: MEAN CORPUSCULAR HEMOGLOBIN 30.1 pg (27.0-33.0); MEAN CORPUSCULAR HGB CONC 32.7 g/dl (32.0-36.5); MEAN CORPUSCULAR VOLUME 92.2 fl (80.0-96.0); RED CELL DISTRIBUTION WIDTH 14.8 % (11.5-14.5)
[2017-01-25 07:03] LABS: CALCIUM LEVEL 8.7 MG/DL (8.8-10.2); CREATININE FOR GFR 1.46 MG/DL (0.70-1.30); GLOMERULAR FILTRATION RATE 51.1 (>49); POTASSIUM SERUM 3.9 MEQ/L (3.5-5.1)
[2017-01-25 07:06] LABS: WHITE BLOOD COUNT 33.7 10^3/uL (4.0-10.0)
[2017-01-25] MEDS: BUDESONIDE 0.5 MG/2 ML INHALATION SUSPENSION INH SCH ×2 (07:23→20:17)
[2017-01-25] MEDS: FORMOTEROL FUMARATE 20 MCG/2 ML INHALATION SOLUTION (PERFOROMIST) INH SCH ×2 (07:23→20:17)
[2017-01-25] MEDS: GENTAMICIN SULF INJ 80MG/2ML VIAL (J1580) NEB SCH ×2 (07:30→20:18)
[2017-01-25] MEDS: HumaLOG INSULIN (NovoLOG) PER UNIT SC SCH ×4 (07:30→22:10)
[2017-01-25 08:00] VITALS: BP 122/62
[2017-01-25] MEDS: ENOXAPARIN 30 MG/0.3 ML SYR (J1650) SC SCH (08:47)
[2017-01-25] MEDS: ATENOLOL 25 MG TAB PO SCH (08:48)
[2017-01-25] MEDS: LOSARTAN 50 MG TAB PO SCH (08:48)
[2017-01-25] MEDS: ASPIRIN 325 MG TAB PO SCH (08:49)
[2017-01-25] MEDS: ALLOPURINOL 300 MG TAB PO SCH (08:49)
[2017-01-25] MEDS: FUROSEMIDE 80 MG TAB PO SCH ×2 (08:50→15:35)
[2017-01-25] MEDS: guaiFENesin ER 600 MG TAB PO SCH ×2 (08:50→21:00)
[2017-01-25] MEDS: predniSONE 20 MG TAB PO SCH (08:50)
[2017-01-25] MEDS: SENOKOT S TAB PO SCH ×2 (08:50→22:10)
[2017-01-25] MEDS: SPIRONOLACTONE 25 MG TAB PO SCH (08:50)
[2017-01-25 11:11] LABS: MEAN CORPUSCULAR HEMOGLOBIN 29.7 pg (27.0-33.0); MEAN CORPUSCULAR HGB CONC 31.8 g/dl (32.0-36.5); MEAN CORPUSCULAR VOLUME 93.5 fl (80.0-96.0); PLATELET COUNT, AUTOMATED 186 10^3/uL (150-450); RED CELL DISTRIBUTION WIDTH 14.7 % (11.5-14.5)
[2017-01-25 11:22] LABS: POSITIVE DIFF POS FLAG; WHITE BLOOD COUNT 34.2 10^3/uL (4.0-10.0)
[2017-01-25 11:23] LABS: ADD MANUAL DIFFER YES; POS COUNT POS FLAG
[2017-01-25 11:24] LABS: DIFF SLIDE NUMBER 176
[2017-01-25 12:02] LABS: BANDS 2 % (< 11)
[2017-01-25 14:00] VITALS: BP 123/62
[2017-01-25] MEDS: MEROPENEM INJ 1 GM in D5W MINI-BAG PLUS 100 ML IV SCH ×2 (15:34→22:09)
[2017-01-25 17:10] VITALS: BP 139/65
--- NOTE | 2017-01-25 17:32 | REP ---
PA AND LATERAL CHEST: 01/25/2017. Comparison: portable chest 01/14/2017, two-view chest 09/26/2014, CT chest without contrast 01/15/2017. Clinical history: Pseudomonas infection, follow-up. Findings: Lungs quite hyperinflated with bullous emphysematous change bilaterally. Flattened diaphragms noted. Heavier consolidative changes in the perihilar and right lower lobe. Nodular infiltrates in the left base and right base now visible. Small nodular infiltrates better seen on CT than the previous portable chest of limited technical quality. Heart is not grossly enlarged. There is lateral pleural thickening bilaterally. The aorta is intact. Airway intact. Hilar and mediastinal contours unchanged. Impression: 1. Worsening pattern of nodular infiltrates in the right mid and both lower lung zones, worse on the right than left overall. Advanced COPD, bullous emphysematous changes and prominent pulmonary arteries from pulmonary artery hypertension. Signed by Loco Barrett MD 01/26/2017 05:05 P
[2017-01-25] MEDS: LEVEMIR (INSULIN DETEMIR) 1 UNITS/0.01ML SC SCH (21:00)
[2017-01-25 22:00] VITALS: BP 119/64
[2017-01-25] MEDS: SIMVASTATIN 20 MG TAB PO SCH (22:10)
[2017-01-25] MEDS: FINASTERIDE 5 MG TAB PO SCH (22:10)
--- NOTE | 2017-01-25 23:18 | IPN ---
DATE: 01/25/2017 SUBJECTIVE: The patient seen and examined in the room today. The acute increase in white blood cell count was discussed with the patient. The patient denies any worsening of breathing. Still has persistent productive cough, but the patient denies any fever or chills. The patient denies any difficulty swallowing or events of aspiration. The patient also denies any diarrhea or dysuria. The patient was seen multiple times in the day. The patient was sitting comfortably in his recliner. The patient eating breakfast with his without any acute distress. This morning the patient's fasting glucose showed the patient had a glucose of 43. The patient does not have any history of hypoglycemia. After the patient ate his breakfast, glucose level improved to above 75. OBJECTIVE: VITAL SIGNS: Temperature 98.3, pulse 76, respirations 20, blood pressure 122/62, pulse oximetry 95% with 2.5 liters of nasal cannula. GENERAL: Morbidly obese. No sign of acute distress. Alert and oriented times three. HEENT: Normocephalic, atraumatic. Extraocular movements grossly intact. CARDIOVASCULAR: Positive S1, S2, regular rate. LUNGS: Coarse lung sounds bilaterally. There is some expiratory wheezes. ABDOMEN: Soft, nontender, nondistended. Bowel sounds present. No rebound. No guarding. EXTREMITIES: No edema. Compression stockings in place. LABORATORY DATA: WBC is 33.7, hemoglobin is 16.5, hematocrit 50.5, platelet count is 230. Sodium is 142, potassium 3.9, chloride is 99, carbon dioxide 41, BUN 62, creatinine 1.46. GFR is 51.1, fasting glucose 43, calcium 8.7. C-reactive protein 4.57. ASSESSMENT AND PLAN: 1. Acute increased leukocytosis with C-reactive protein. The patient was previously admitted for chronic obstructive pulmonary disease (COPD) exacerbation and congestive heart failure (CHF) exacerbations. Patient's clinical condition is monitored on a daily basis. The patient is always stating he is continuing improvements. There is also continued decrease of white blood cell count with steroid taper. Initially the patient also had very minimal C-reactive protein escalation. Today the patient has acute change in C-reactive protein and WBC without supporting physical examination and history. There is a concern for worsening pseudomonas flare. The patient's sputum culture show pseudomonas infection with increased resistance. The patient was given two antibiotics for the dual coverage. Infectious disease specialist, Dr. Deleon, is also consulted for assistance. 2. Chronic pseudomonas infection. At the baseline, the patient is being placed on rotating antibiotics and nebulizer treatment for suppression therapy. The last available sputum culture was done in 2013. At the time, pseudomonas is resistant to aztreonam, ceftazidime and imipenem. The most recent sputum culture show resistance to cefepime, gentamicin and tobramycin. The available antibiotics for patient are in the third-generation Rocephin, fluoroquinolone, meropenem and Zosyn. It may create difficulty for patient's chronic suppression therapy. Gentamicin nebulizer may not be effective for the patient anymore. 3. COPD exacerbation. Initially the patient is placed on IV Solu-Medrol and short course of Avelox was started. The patient continues to show significant symptomatic improvement. Later while waiting for the sputum culture, the case was discussed with Dr. Pimentel and gentamicin nebulizer treatment will be started during this hospitalization. Currently sputum culture was not available. That may create some difficulty for patient's chronic antibiotic therapy for suppression. During physical exam the patient continued to have improvement of the respiratory status. Will continue the steroid taper. 4. Congestive heart failure exacerbation. The patient has preserved ejection fraction (EF). The patient is currently on home Lasix and spironolactone therapy. The patient continues to have negative output. 5. Steroid induced hyperglycemia and leukocytosis. Previously patient's long acting insulin has to increase while the patient is on IV Solu-Medrol. During prior incidence, the patient's fasting glucose will raise above 450s. With the steroid taper, the patient's glucose is under better control. However, this morning, the patient presented with hypoglycemia episode with glucose of 43. It could be due to the elevated dose of Levemir versus acute worsening disease process. The patient's long acting insulin being adjusted. 6. Hypoglycemia episode. The patient was asymptomatic at the moment. After the oral meal the patient's glucose returned to his normal range. 7. Hypertension. The blood pressure regimen is atenolol, spironolactone, Lasix and losartan. 8. Hyperlipidemia. On Zocor 40 mg by mouth at bedtime. 9. Type 2 diabetes. Long acting insulin is being adjusted. The patient on sliding scale. The patient is on consistent carbohydrate diet. 10. Obstructive sleep apnea (SHANNON). The patient on SHANNON protocol. There are a few times the patient was found not to be fully compliant with CPAP. The patient was found to nap with nasal cannula only. Per the patient he is being compliant most of the time. 11. Morbid obesity. 12. Acute kidney injury. Continues to have a negative fluid balance. Renal function is improving on his home diuretic regimen. 13. Deep venous thrombosis (DVT) prophylaxis on compression stocking.
[2017-01-26] MEDS: IPRATROPIUM 0.02% SOLN 0.5MG/2.5 ML NEB INH SCH ×7 (00:10→23:15)
[2017-01-26] MEDS: ALBUTEROL SULFATE 2.5 MG/0.5 ML INH NEB SOLN INH SCH ×7 (00:10→23:15)
[2017-01-26 06:00] VITALS: BP 121/63
[2017-01-26 06:07] LABS: MEAN CORPUSCULAR HEMOGLOBIN 29.4 pg (27.0-33.0); MEAN CORPUSCULAR HGB CONC 31.8 g/dl (32.0-36.5); MEAN CORPUSCULAR VOLUME 92.3 fl (80.0-96.0); RED CELL DISTRIBUTION WIDTH 14.8 % (11.5-14.5)
[2017-01-26 06:21] LABS: CALCIUM LEVEL 8.8 MG/DL (8.8-10.2); CREATININE FOR GFR 1.76 MG/DL (0.70-1.30); GLOMERULAR FILTRATION RATE 41.2 (>49); POTASSIUM SERUM 4.1 MEQ/L (3.5-5.1)
[2017-01-26] MEDS: MEROPENEM INJ 1 GM in D5W MINI-BAG PLUS 100 ML IV SCH ×3 (06:35→22:11)
[2017-01-26] MEDS: BUDESONIDE 0.5 MG/2 ML INHALATION SUSPENSION INH SCH ×2 (07:13→19:42)
[2017-01-26] MEDS: FORMOTEROL FUMARATE 20 MCG/2 ML INHALATION SOLUTION (PERFOROMIST) INH SCH ×2 (07:13→19:42)
[2017-01-26] MEDS: GENTAMICIN SULF INJ 80MG/2ML VIAL (J1580) NEB SCH ×2 (07:13→19:42)
[2017-01-26] MEDS: HumaLOG INSULIN (NovoLOG) PER UNIT SC SCH ×4 (07:30→22:09)
[2017-01-26] MEDS: FUROSEMIDE 80 MG TAB PO SCH ×2 (08:04→17:05)
[2017-01-26] MEDS: SENOKOT S TAB PO SCH ×2 (08:05→22:10)
[2017-01-26] MEDS: SPIRONOLACTONE 25 MG TAB PO SCH (08:05)
[2017-01-26] MEDS: ALLOPURINOL 300 MG TAB PO SCH (08:05)
[2017-01-26] MEDS: ATENOLOL 25 MG TAB PO SCH (08:05)
[2017-01-26] MEDS: predniSONE 20 MG TAB PO SCH (08:05)
[2017-01-26] MEDS: guaiFENesin ER 600 MG TAB PO SCH ×2 (08:06→21:00)
[2017-01-26] MEDS: ENOXAPARIN 30 MG/0.3 ML SYR (J1650) SC SCH (08:06)
[2017-01-26] MEDS: LOSARTAN 50 MG TAB PO SCH (08:06)
[2017-01-26] MEDS: ASPIRIN 325 MG TAB PO SCH (08:06)
--- NOTE | 2017-01-26 12:01 | CR ---
DATE OF CONSULTATION: 01/25/2017 REFERRING PHYSICIAN: Dr. Aishwarya Layne. REASON FOR CONSULTATION: For evaluation of leukocytosis and elevated inflammation marker in a patient with COPD exacerbation and Pseudomonas infection. HISTORY OF PRESENT ILLNESS: Mr. Avelar is a pleasant obese 66-year-old gentleman who was admitted, who had a history of chronic obstructive pulmonary disease (COPD) oxygen and steroid dependent. The patient came in on 01/14/2017 with increasing shortness of breath of a couple of days in duration prior admission. The patient was also experiencing orthopnea, paroxysmal nocturia. The patient has a cough productive of yellowish phlegm, which has been into greenish phlegm. He also reported increasing wheezing. The patient has been on multiple IV antibiotics since admission and high doses of steroid initially Solu-Medrol 60 mg IV every 6 hours that was switched to prednisone 50 mg by mouth twice a day that he received on 01/22/2017. Then prednisone was decreased to 40 mg twice a day on 01/23/2017 and today to 40 mg daily. He was treated with moxifloxacin for a total of 6 days from 01/22/2017 to 01/25/2017, Zithromax for a total of 3 days from 01/15/2017 to 01/18/2017 and today due to the leukocytosis and elevated C-reactive protein (CRP), he was started on meropenem. The patient denies any nausea, vomiting or diarrhea. No abdominal pain. No fever or chills. The patient feels better than on admission. He was getting ready for discharge home. He has diuresed well since admission with at least 1.5 to 2 liters output every day. PAST MEDICAL HISTORY: Significant for COPD, steroid and oxygen dependent usually on 10 mg of prednisone and 2 liters of Oxygen, hypertension, chronic lower extremity edema, diastolic dysfunction with ejection fraction (EF) of 60%, gout hyperlipidemia, hypertension, insulin-dependent diabetes, obstructive sleep apnea on CPAP, chronic low back pain chronic kidney disease with creatinine 1.5 to 12.8, morbid obesity and recurrent Pseudomonas infection. PAST SURGICAL HISTORY: Prosthesis of his left eye in 1976, benign prosthetic hypertrophy (BPH) status post transurethral resection of prostate (TURP) with Dr. Mckeon and left wrist orthopedic repair. SOCIAL HISTORY: He lives with his and [facility]. 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 He quit smoking 1996. No alcohol since 1996. FAMILY HISTORY: Heart disease. REVIEW OF SYSTEMS: He has a cough productive of yellow to greenish phlegm, which has improved, chronic shortness of breath and lower extremity edema. No nausea, vomiting or diarrhea. No abdominal pain, no new urinary symptoms. No upper or lower extremity weakness. The patient has ambulated around the nurses station twice today and states this is better than on admission. PHYSICAL EXAMINATION: On physical exam he is a healthy looking gentleman in no acute distress on oxygen. Temperature is 97.1, pulse 74, respirations 20, blood pressure 190/64, O2 sat 96 % on 2 liters nasal cannula. Heart: Normal S1, S2. No murmur, distant. Lungs: Diffuse exterior rhonchi bilaterally. No wheezing or crackles. Abdomen: Morbidly obese, soft, nontender. Extremities: +1 pitting edema bilaterally with venostasis changes. Oropharynx is clear with no thrush and no lesions. Pupils equal and reactive, anicteric. Neurologic: Exam alert and oriented times three. Moves all extremities sitting in his chair in no discomfort. LABS: White count is 34.2, hemoglobin 15.2, hematocrit 47.8, platelets 186, 92% neutrophils, 2% bands, 2% lymphocytes. Sodium 142, potassium 3.9, chloride 99, bicarbonate 41, BUN 62, creatinine 1.46, glucose 43 , calcium 8.7, CRP 4.57 which is up from 0.6 from 3 days prior. Respiratory panel done on 01/14 was Urine culture was negative blood culture was negative times two. IMAGING STUDIES: On admission chest x-ray showed no acute cardiopulmonary findings with chronic fibrotic changes. Chest CT showed bronchitis, bronchiectasis and bronchiolitis. Bibasilar subsegmental atelectatic changes and hepatomegaly healed fracture of the sixth rib. Renal ultrasound shows no acute findings. Liver ultrasound showed hepatomegaly and fatty infiltration. Chest x-ray showed nodular infiltrates in the left base and right base with advanced COPD bullous emphysematous changes and prominent pulmonary arteries and has an air of consolidation in the perihilar and right lower lobe area. Sputum culture from 01/18/2017 had Pseudomonas fluorescens and Pseudomonas aeruginosa heavy growth resistant to tobramycin and cefepime sensitive to meropenem and levofloxacin. IMPRESSION: This is a 66-year-old gentleman admitted with worsening shortness of breath treated for fluid overload and COPD exacerbation, now has worsening leukocytosis which currently is steroid dependent increased CRP. Although clinically the patient feels better, his chest x-ray looks worse and sputum had heavy growth of Pseudomonas of two different colonies. The patient has been treated with Avelox , which has no Pseudomonas coverage and Zithromax and today has been started on meropenem. PLAN: Discontinue by mouth Avelox and Zithromax. Continue with meropenem 1 gram IV every 8 hours until the patient feels better and cough has decreased. Once the patient back to baseline, he could be switched to levofloxacin for treatment of Pseudomonas infection. If nodular infiltrates persist, would suggest also sending sputum for atypical mycobacteria. MTDD
[2017-01-26 14:00] VITALS: BP 120/58
--- NOTE | 2017-01-26 17:02 | IPN ---
DATE: 01/26/2017 SUBJECTIVE: The patient tells me that he is feeling better today. He tells me that he has some mild shortness of breath but is better than when he was in the emergency room. He denies chest pain, fevers, chills, nausea, vomiting, or diarrhea. OBJECTIVE: VITAL SIGNS: Temperature 97.4 afebrile, pulse 62, respiratory rate 18, blood pressure 120/58, oxygen saturation 92% on two liters nasal cannula. GENERAL: He is an elderly, morbidly obese, man sitting in a recliner. He is accompanied by his . The patient does not appear to be in any acute distress whatsoever. HEENT: Pupils are equally round and reactive to light. He has moist mucous membranes. No elevation in central venous pressure (CVP). CARDIOVASCULAR EXAMINATION: S1, S2, regular. RESPIRATORY EXAMINATION: Actually quite clear at this time. ABDOMINAL EXAMINATION: Benign but obese. EXTREMITIES: No clubbing or cyanosis. There is trace edema bilaterally. LABORATORY STUDIES: WBC 24 down from 34, hemoglobin 14.5, platelet count 183. Chemistry panel: Sodium 140, potassium 4.1, chloride 98, bicarbonate 40, BUN 72, creatinine 1.7. MICROBIOLOGY: Sputum is positive for Pseudomonas fluorescens and Pseudomonas aeruginosa. IMAGING STUDIES: The patient did have chest x-ray yesterday which revealed worsening pattern of nodular infiltrates in the right mid and both lower lung zones, worse on the right than the left overall, advanced COPD, bullous emphysematous changes and prominent pulmonary arteries from pulmonary artery hypertension. ASSESSMENT AND PLAN: This is a 66-year-old man with shortness of breath. PROBLEM LIST: 1. Shortness of breath, multifactorial in nature, felt to be related to fluid overload and possibly chronic obstructive pulmonary disease (COPD). However, over the last several days, he did have a rising leukocytosis. The patient has been empirically on Avelox, Zithromax and meropenem. At the present time, the patient is being discontinued from Avelox and Zithromax by Dr. Deleon of infectious disease whose help is greatly appreciated and continued on meropenem. The patient does feel better and his cough has decreased. He could likely be switched to levofloxacin for treatment for his Pseudomonas infection. I will discuss further with Dr. Deleon if he should return back to his previous rotating antibiotics regimen or if he should continue with his gentamicin given the resistance. Dr. Deleon has advised that if the nodular infiltrates persist, he may benefit from sputum for atypical microbacterium. 2. Chronic obstructive pulmonary disease. The patient appears to be fairly close to his baseline in terms of his respiratory status. We will check an ambulating oxygen saturation. He is on prednisone and today is day two of 40 mg. We will continue to taper this. He is continued on albuterol and Atrovent with nebulizers standing and as needed as well as formoterol twice a day and Pulmicort twice a day. 3. Decompensated congestive heart failure. Continue with Lasix, atenolol, losartan, and aldactone. 4. Benign prostatic hypertrophy (BPH). Continue with Proscar. 5. Dyslipidemia. Continue with simvastatin. 6. Steroid-induced hyperglycemia and leukocytosis, improving with taper. 7. Hypertension, controlled with the aforementioned regimen. 8. Dyslipidemia. Continue with Zocor. 9. Type 2 diabetes. Continue with sliding scale insulin. His fingersticks are controlled. 10. Obstructive sleep apnea. Continue with continuous positive airway pressure (CPAP). He is not completely compliant. He understands the risks. 11. Morbid obesity, complicating care. 12. Acute kidney injury. Renal function is relatively stable. We will continue to monitor closely. He may require less diuresis than he is on currently. 13. Gout. Continue with allopurinol. 14. Deep vein thrombosis (DVT) prophylaxis. The patient is on Lovenox. DISPOSITION: Pending improvement. He may be ready for discharge in the next 48-72 hours.
[2017-01-26 17:06] VITALS: BP 144/74
[2017-01-26] MEDS: LEVEMIR (INSULIN DETEMIR) 1 UNITS/0.01ML SC SCH (21:00)
[2017-01-26 22:00] VITALS: BP 136/83
[2017-01-26] MEDS: FINASTERIDE 5 MG TAB PO SCH (22:10)
[2017-01-26] MEDS: SIMVASTATIN 20 MG TAB PO SCH (22:10)
[2017-01-27] MEDS: IPRATROPIUM 0.02% SOLN 0.5MG/2.5 ML NEB INH SCH ×6 (02:21→23:12)
[2017-01-27] MEDS: ALBUTEROL SULFATE 2.5 MG/0.5 ML INH NEB SOLN INH SCH ×6 (02:22→23:11)
[2017-01-27 06:00] VITALS: BP 133/76
[2017-01-27 07:15] LABS: MEAN CORPUSCULAR HEMOGLOBIN 29.7 pg (27.0-33.0); MEAN CORPUSCULAR HGB CONC 32.2 g/dl (32.0-36.5); WHITE BLOOD COUNT 20.5 10^3/uL (4.0-10.0)
[2017-01-27] MEDS: BUDESONIDE 0.5 MG/2 ML INHALATION SUSPENSION INH SCH ×2 (07:41→20:02)
[2017-01-27] MEDS: FORMOTEROL FUMARATE 20 MCG/2 ML INHALATION SOLUTION (PERFOROMIST) INH SCH ×2 (07:41→20:02)
[2017-01-27] MEDS: GENTAMICIN SULF INJ 80MG/2ML VIAL (J1580) NEB SCH (08:00)
[2017-01-27 09:00] LABS: CALCIUM LEVEL 8.6 MG/DL (8.8-10.2); CREATININE FOR GFR 1.63 MG/DL (0.70-1.30); GLOMERULAR FILTRATION RATE 44.9 (>49); POTASSIUM SERUM 3.7 MEQ/L (3.5-5.1)
[2017-01-27] MEDS: guaiFENesin ER 600 MG TAB PO SCH ×2 (09:30→21:55)
[2017-01-27] MEDS: ALLOPURINOL 300 MG TAB PO SCH (09:30)
[2017-01-27] MEDS: FUROSEMIDE 80 MG TAB PO SCH ×2 (09:31→16:45)
[2017-01-27] MEDS: ASPIRIN 325 MG TAB PO SCH (09:31)
[2017-01-27] MEDS: predniSONE 20 MG TAB PO SCH (09:31)
[2017-01-27] MEDS: ATENOLOL 25 MG TAB PO SCH (09:31)
[2017-01-27] MEDS: LOSARTAN 50 MG TAB PO SCH (09:32)
[2017-01-27] MEDS: ENOXAPARIN 30 MG/0.3 ML SYR (J1650) SC SCH (09:33)
[2017-01-27] MEDS: HumaLOG INSULIN (NovoLOG) PER UNIT SC SCH ×4 (09:33→21:56)
[2017-01-27] MEDS: SENOKOT S TAB PO SCH ×2 (09:34→21:55)
[2017-01-27] MEDS: SPIRONOLACTONE 25 MG TAB PO SCH (09:39)
[2017-01-27] MEDS: MEROPENEM INJ 1 GM in D5W MINI-BAG PLUS 100 ML IV SCH ×3 (10:49→22:03)
[2017-01-27 14:00] VITALS: BP 129/63
--- NOTE | 2017-01-27 14:41 | IPN ---
DATE: 01/27/2017 SUBJECTIVE: The patient tells me that he is feeling better today. He tells me he is up and ambulating more easily. He is less short of breath. Denies, fevers, chills, nausea, vomiting. OBJECTIVE: VITAL SIGNS: Temperature 97, pulse 80, respiratory rate 20, blood pressure 133/76, Oxygen saturation 92% on 2 liters. GENERAL: He is an obese elderly man laying in bed receiving nebulized treatment. He does not appear to be in any acute distress whatsoever. HEENT: Cranial nerves II through XII are grossly intact. He has moist mucous membranes. No elevation of central venous pressure. CARDIOVASCULAR: S1, S2 regular. RESPIRATORY: Exam is actually quite clear with diminished breath sounds at the bases. ABDOMEN: Exam is grossly obese. Bowel sounds are present. Abdomen is soft. EXTREMITIES: No clubbing or cyanosis. There is trace edema. LABORATORY STUDIES: WBC 20.0 down from 24. Hemoglobin 14.8, platelet count 221. Chemistry panel: Sodium 140, potassium 3.7, chloride 99, bicarbonate 37, BUN 71, creatinine 1.6. No new microbiology or imaging. ASSESSMENT/PLAN: This is a 66-year-old male with shortness of breath. PROBLEMS: 1. Shortness of breath, multifactorial in nature. [place] initially to be related to fluid overload and possibly chronic obstructive pulmonary disease (COPD), however, over the last several days, he did have a rising leukocytosis and patient was empirically on Avelox and Zithromax as well as meropenem. 2. Pseudomonas respiratory infection: The patient is normally on rotating antibiotics and gentamicin and nebulizers on and off, as per Dr. Pimentel. Dr. Deleon of infections disease help greatly appreciated. The Avelox and Zithromax were discontinued. At this time, the patient is continued on meropenem. He is improving. Cough has decreased. He exercise tolerance has increased. I did speak with Dr. Deleon today and suspect that he can be transitional to levofloxacin by mouth to complete additional 11 days totally 14 days total treatment for pseudomonas infection. We will discontinue his gentamicin nebulizers as cultures demonstrate a resistance to this. After completing his levofloxacin treatment he is okay to resume his rotating antibiotic cycle as per Dr. Pimentel. 3. COPD: We continue to taper his steroids. His leukocytosis is down-trending. His glucose control is improved. He is continued on albuterol, Atrovent with nebulizers as needed. He is also on formoterol twice a day and Pulmicort twice a day. 4. Decompensating congestive heart failure: He is euvolemic at this time. Continue with Lasix and Tylenol, losartan and aldactone. 5. Benign prostatic hypertrophy (BPH): He continues with Proscar. 6. Chronic kidney disease: Stable. 7. Steroid induced hyperglycemia and leukocytosis: Improving with steroid taper. 8. Hypertension: Controlled with the aforementioned regimen. 9. Dyslipidemia: Continue with Zocor. 10. Type 2 diabetes: Continue with sliding scale insulin. His fingersticks are controlled at this time. 11. Obstructive sleep apnea: Continue with CPAP at night. He is not completely compliant but understands the risks. 12. Morbid obesity complicating care. 13. Acute kidney injury resolved as outlined above. He is back to his current baseline renal function. 14. Gout: Continue with allopurinol. 15. Deep venous thrombosis prophylaxis: He is on Lovenox. DISPOSITION: Plan is for potentially discharging him home within the next 24-48 hours.
[2017-01-27] MEDS: SIMVASTATIN 20 MG TAB PO SCH (21:55)
[2017-01-27] MEDS: FINASTERIDE 5 MG TAB PO SCH (21:55)
[2017-01-27] MEDS: LEVEMIR (INSULIN DETEMIR) 1 UNITS/0.01ML SC SCH (21:56)
[2017-01-27 22:00] VITALS: BP 130/64
[2017-01-28] MEDS: IPRATROPIUM 0.02% SOLN 0.5MG/2.5 ML NEB INH SCH ×3 (03:07→11:05)
[2017-01-28] MEDS: ALBUTEROL SULFATE 2.5 MG/0.5 ML INH NEB SOLN INH SCH ×3 (03:07→11:05)
[2017-01-28 06:00] VITALS: BP 142/68
[2017-01-28 06:12] LABS: MEAN CORPUSCULAR HEMOGLOBIN 29.2 pg (27.0-33.0); MEAN CORPUSCULAR HGB CONC 31.5 g/dl (32.0-36.5); MEAN CORPUSCULAR VOLUME 92.6 fl (80.0-96.0); RED CELL DISTRIBUTION WIDTH 14.6 % (11.5-14.5); WHITE BLOOD COUNT 18.4 10^3/uL (4.0-10.0)
[2017-01-28] MEDS: MEROPENEM INJ 1 GM in D5W MINI-BAG PLUS 100 ML IV SCH (06:13)
[2017-01-28 06:27] LABS: CALCIUM LEVEL 9.3 MG/DL (8.8-10.2); CREATININE FOR GFR 1.71 MG/DL (0.70-1.30); GLOMERULAR FILTRATION RATE 42.5 (>49)
[2017-01-28 06:30] LABS: POTASSIUM SERUM 4.6 MEQ/L (3.5-5.1)
[2017-01-28] MEDS: BUDESONIDE 0.5 MG/2 ML INHALATION SUSPENSION INH SCH (07:13)
[2017-01-28] MEDS: FORMOTEROL FUMARATE 20 MCG/2 ML INHALATION SOLUTION (PERFOROMIST) INH SCH (07:13)
[2017-01-28] MEDS ORDERED: predniSONE 20 MG TAB PO SCH (09:00)
[2017-01-28] MEDS ORDERED: LEVO500T3 PO (10:21)
[2017-01-28] MEDS ORDERED: PRED20TA PO (10:21)
[2017-01-28] MEDS: LOSARTAN 50 MG TAB PO SCH (10:30)
[2017-01-28 10:31] VITALS: BP 157/71
[2017-01-28] MEDS: SPIRONOLACTONE 25 MG TAB PO SCH (10:31)
[2017-01-28] MEDS: FUROSEMIDE 80 MG TAB PO SCH (10:31)
[2017-01-28] MEDS: ASPIRIN 325 MG TAB PO SCH (10:31)
[2017-01-28] MEDS: ATENOLOL 25 MG TAB PO SCH (10:31)
[2017-01-28] MEDS: ALLOPURINOL 300 MG TAB PO SCH (10:31)
[2017-01-28] MEDS: ENOXAPARIN 30 MG/0.3 ML SYR (J1650) SC SCH (10:32)
[2017-01-28] MEDS: SENOKOT S TAB PO SCH (10:32)
[2017-01-28] MEDS: guaiFENesin ER 600 MG TAB PO SCH (10:32)
[2017-01-28] MEDS: HumaLOG INSULIN (NovoLOG) PER UNIT SC SCH ×2 (10:35→12:18)
--- NOTE | 2017-01-28 16:35 | IPN ---
DATE: 01/26/2017 Mr. Avelar was seen visiting his daughter who also is in the hospital. He is looking good. He is not even wearing his oxygen. He states his shortness breath and cough have improved. He has no nausea, vomiting, or diarrhea. No fever or chills. His cough is productive of yellow phlegm. Vital signs: Temperature is 97.4, pulse 62, respirations 18, blood pressure 120/58, oxygen saturation 92% on 2 liters nasal cannula. Heart: Normal S1, S2 with distant. No murmurs appreciated. Lungs: Diffuse expiratory rhonchi bilaterally. Abdomen: Morbidly obese, soft, nontender. Extremities: Trace edema at the ankles. He is wearing his compression stockings. LABS: White count is 24,000, down from 34,000 yesterday. Hemoglobin 14.5, hematocrit 45.6, platelets 183. Sodium 140, potassium 4.1, chloride 98, bicarbonate 40, BUN 72, creatinine 1.76, glucose 137, calcium 8.8. Sputum culture positive for Pseudomonas fluorescens and aeruginosa. They are both of heavy growth, and the aeruginosa is resistant to cefepime and to aminoglycosides. Chest x-ray, PA and lateral, showed worsening pattern of nodular infiltrates in the right mid and both lower lungs, worse on the right than the left, advanced chronic obstructive pulmonary disease (COPD), and bullous emphysematous changes. IMPRESSION: 1. Pseudomonas pneumonia possibly developed in the hospital. Meropenem was given IV every 8 hours. Has been doing better. Patient is on day #2 of meropenem. Prednisone has been decreased to 40 mg daily, and his cough has improved. 2. Chronic obstructive pulmonary disease exacerbation. On prednisone and nebulizers. 3. Leukocytosis, steroid induced. Patient was on Solu-Medrol every 6 hours and prednisone 50 mg twice a day previously, and that is the reason for his leukocytosis. PLAN : continue meropenem for 2-3 days then if leukocytosis and SOB improve switch to levofloxacin 500 mg daily, continue 10-day treatment renally dosed. There is no need for him to be sent home on gentamicin nebulizer. He is now resistant to aminoglycosides he was of gentamicin nebulizer every 28 days. [facility]
--- NOTE | 2017-01-28 17:35 | DSES ---
DATE OF ADMISSION: 01/14/2017 DATE OF DISCHARGE: 01/28/2017 DISCHARGE DIAGNOSIS: Decompensated diastolic congestive heart failure. SECONDARY DIAGNOSES: 1. Shortness of breath. 2. Chronic obstructive pulmonary disease (COPD). 3. Pseudomonas lung infection. 4. BPH. 5. Chronic kidney disease. 6. Steroid induced hyperglycemia. 7. Leukocytosis. 8. Hypertension. 9. Dyslipidemia. 10. Type 2 diabetes. 11. Obstructive sleep apnea. 12. Morbid obesity. 13. Acute kidney injury. 14. Gout. CONSULTATIONS: Dr. Blessing Deleon, infectious disease. HOSPITAL COURSE: The patient is a 66-year-old man with known diastolic congestive heart failure, COPD, chronically oxygen dependent with 2 liters all the time, as well as a chronic pseudomonas infection. He is normally on a rotating course of antibiotics, as well as 28 days on and 28 days off gentamicin. He was admitted for shortness of breath and treated initially for decompensated diastolic congestive heart failure and decompensated COPD. His symptoms did gradually improve, however he did have worsening leukocytosis and inflammatory markers, as well as worsening shortness of breath midway through his stay which was a change from his improvement. He was seen by Dr. Deleon of infectious disease. He had been started empirically on antibiotics, however it did not include Pseudomonas coverage. Based on his culture data, he was continued on meropenem. Shortly thereafter, his respiratory symptoms quickly improved, his leukocytosis began tapering down, clinically his syndrome resolved. SUBJECTIVE: Today, the patient tells me that he is feeling well, he is feeling almost back to his baseline. He denies any complaints of worsened shortness of breath, chest pain, fevers, chills, nausea, vomiting, or diarrhea. OBJECTIVE: VITAL SIGNS: Temperature 96.8, pulse 60, respiratory rate 20, blood pressure 142/68, oxygen saturation 96% on 2 liters. GENERAL: He is a morbidly obese, elderly, man sitting in a recliner. He does not appear to be in any acute distress. HEENT: Cranial nerves II-XII are grossly intact. He has moist mucous membranes. No elevation in his central venous pressure (CVP), but he has an enlarged neck. CARDIOVASCULAR EXAM: S1, S2, regular. RESPIRATORY EXAM: He is actually quite clear to auscultation bilaterally. I believe there is significant transmitted upper airway sounds. ABDOMINAL EXAM: Grossly obese. EXTREMITIES: No clubbing, cyanosis, or appreciable edema. LABORATORY STUDIES: WBC 18.4, trending down from a peak of 34.2, hemoglobin 15.1, platelet count 233. Chemistry panel: Sodium 142, potassium 4.6, chloride 98, bicarbonate 41, BUN 69, creatinine 1.7. Microbiology: Blood cultures were negative from 01/14/2017. Urine culture was negative on 01/14/2017. Respiratory polymerase chain reaction (PCR) panel is negative from 01/14/2017. Sputum from 01/18/2017, was positive for Pseudomonas fluorescens and aeruginosa resistant to cefepime, gentamicin, and tobramycin. IMAGING: The patient had a chest x-ray at the time of admission which revealed no acute cardiopulmonary findings. He also had a liver ultrasound that revealed fatty infiltration of the liver and hepatomegaly. He had a renal ultrasound during his stay which was essentially a negative ultrasound. CT scan of the chest revealed bronchitis, bronchiectasis, bronchiolitis, bibasilar segmental atelectatic pulmonary changes, hepatomegaly, healed fracture of the axillary portion of the right 6th rib. ASSESSMENT AND PLAN: This is a 67-year-old man with shortness of breath. 1. Shortness of breath, multifactorial in nature, initially felt to be related to fluid overload and possibly decompensated diastolic congestive heart failure and possibly chronic obstructive pulmonary disease (COPD), and he did initially improve with treatment. However, he then developed rising leukocytosis and an element of it was felt to be related to Pseudomonas bronchiectasis infection. 2. Pseudomonas respiratory infection, likely bronchiectatic. He is normally on rotating antibiotics and gentamicin nebulizers 28 days on and 28 days off [address] per Dr. Pimentel. However, at this time the microbiology suggests that the Pseudomonas is now resistant to gentamicin. As such, this has been discontinued after discussion with Dr. Deleon. For the time being, the patient has been on meropenem. At the time of discharge, he will be transitioned to levofloxacin to complete a 14 day course total. He is to have further followup with Dr. Pimentel and continue with other rotating antibiotic regimen and followup with Dr. Deleon as needed should he have a recurrence of his infections. 3. Chronic obstructive pulmonary disease (COPD). We have continued to taper steroids. He will have 20 mg for 3 days and then trend back down to his normal home steroid dose. He was also continued on his home oxygen. He is at his baseline respiratory status. He resumed his home nebulizer treatments and inhalers. 4. Decompensated diastolic congestive heart failure. He is euvolemic at this time. He is continued on Lasix, Aldactone, losartan, and atenolol. 5. BPH. He is continued on Proscar. 6. Acute on chronic kidney injury, resolved. 7. Steroid induced hyperglycemia and leukocytosis, improving with steroid taper. 8. Hypertension. Controlled with the aforementioned regimen. 9. Dyslipidemia. Continue with Zocor. 10. Type 2 diabetes. His fingersticks were controlled on insulin sliding scale during this stay. 11. Obstructive sleep apnea. He was not completely compliant with continuous positive airway pressure (CPAP) at night, but understands the risks of long-term effects with this up to and including . 12. Morbid obesity, complicating care. 13. Gout. He was continued on allopurinol. 14. Deep venous thrombosis (DVT) prophylaxis. He has been on Lovenox. DISPOSITION: The patient is being discharged home. He has been cleared by physical therapy. He is at his functional baseline. His clinical syndrome has resolved. He is to followup with his primary care provider (PCP) within 7 days, followup with Dr. Pimentel as scheduled, followup with Dr. Deleon as needed. His activity is as prior to admission. His diet is a consistent carbohydrate, 1800 mL fluid restricted, low sodium diet. He is to return to the emergency room (ER) if his symptoms worsen. MEDICATIONS: At the time of discharge: - levofloxacin 500 mg daily for 11 days - prednisone 20 mg daily for 3 days - albuterol ipratropium nebulizers inhaled four times a day - allopurinol 300 mg daily - aspirin 325 mg daily - atenolol 25 mg daily - azithromycin 250 mg daily - as per Dr. Pimentel budesonide 0.5 mg inhaled twice a day mixed with Perforomist - finasteride 5 mg nightly - formoterol 20 mcg inhaled twice a day mixed with budesonide - Lasix 80 mg by mouth twice a day - glipizide extended release 10 mg twice a day - Mucinex 600 mg twice a day - NovoLog subcutaneously sliding scale before meals - Lantus 45 units nightly subcutaneously - losartan 100 mg daily - Senokot 8.6 mg one tablet twice a day - simvastatin 40 mg nightly - spironolactone 25 mg daily - theophylline 400 mg daily Greater than 30 minutes spent organizing disposition.
== END 2017-01-28 12:39 | disposition home or self-care (01) | DRG 291 ==
LOC: M ED 10:27 → M ED INP 14:59 → M PCU 01-15 13:40 → M MS5PR 01-16 14:55 → M MSPAV 01-25 17:00
PROVIDERS: ADMIT Internal Medicine; ATTEND Internal Medicine
DX: I13.0 Hypertensive heart and chronic kidney disease with heart failure and stage 1 through stage 4 chronic kidney disease, or unspecified chronic kidney disease (principal); J96.21 Acute and chronic respiratory failure with hypoxia; I50.33 Acute on chronic diastolic (congestive) heart failure; J44.1 Chronic obstructive pulmonary disease with (acute) exacerbation; Z68.41 Body mass index [BMI] 40.0-44.9, adult; G47.33 Obstructive sleep apnea (adult) (pediatric); E66.01 Morbid (severe) obesity due to excess calories; M10.9 Gout, unspecified; R94.5 Abnormal results of liver function studies; N18.3 Chronic kidney disease, stage 3 (moderate); E11.65 Type 2 diabetes mellitus with hyperglycemia; J98.8 Other specified respiratory disorders; N40.0 Benign prostatic hyperplasia without lower urinary tract symptoms; B96.5 Pseudomonas (aeruginosa) (mallei) (pseudomallei) as the cause of diseases classified elsewhere; E78.5 Hyperlipidemia, unspecified; Z99.81 Dependence on supplemental oxygen; Z79.52 Long term (current) use of systemic steroids; Z99.89 Dependence on other enabling machines and devices; Z97.0 Presence of artificial eye; Z90.01 Acquired absence of eye; Z87.891 Personal history of nicotine dependence; Z79.4 Long term (current) use of insulin; Z79.899 Other long term (current) drug therapy

== ENCOUNTER → 2017-01-29 | Outpatient (CLI) | payer MEDICARE ==
[~2017-01-29] MED LIST changes: +AZIT250T8 PO; +BUDE0.5S6 INH; +GLIP1TAB11 PO; +NOVOINJ3; +SPIR25TA2 PO; +THEO400T4 PO
[2017-01-29 14:53] LABS: ALBUMIN 2.7 GM/DL (3.2-5.2); ALBUMIN/GLOBULIN RATIO 0.59 (1.00-1.93); BILIRUBIN,TOTAL 0.9 MG/DL (0.2-1.0); CALCIUM LEVEL 9.2 MG/DL (8.8-10.2); CREATININE FOR GFR 1.59 MG/DL (0.70-1.30); GLOMERULAR FILTRATION RATE 46.2 (>49); POTASSIUM SERUM 4.5 MEQ/L (3.5-5.1); TOTAL PROTEIN 7.3 GM/DL (6.4-8.2)
== END ==
LOC: M SMT 08:57
PROVIDERS: ATTEND Family Medicine
DX: E11.9 Type 2 diabetes mellitus without complications (principal)

== ENCOUNTER → 2017-02-23 | Outpatient (CLI) | payer MEDICARE ==
[2017-02-23 13:18] LABS: BASO # 0.2 10^3/uL (0.0-0.2); BASO % 1.2 % (0.0-1.0); EOS # 0.1 10^3/uL (0.0-0.50); EOS % 0.7 % (0.0-3.0); IMMATURE GRANULOCYTE % 2.6 % (0-0); LYMPH # 1.4 10^3/uL (1.5-4.5); LYMPH % 11.1 % (24.0-44.0); MEAN CORPUSCULAR HEMOGLOBIN 29.4 pg (27.0-33.0); MEAN CORPUSCULAR HGB CONC 31.3 g/dl (32.0-36.5); MEAN CORPUSCULAR VOLUME 93.8 fl (80.0-96.0); MONO # 1.1 10^3/uL (0.0-0.8); MONO % 8.2 % (0.0-5.0); NEUTROPHILS # 9.8 10^3/uL (1.8-7.7); NEUTROPHILS % 76.2 % (36.0-66.0); PLATELET COUNT, AUTOMATED 218 10^3/uL (150-450); RED CELL DISTRIBUTION WIDTH 15.2 % (11.5-14.5); WHITE BLOOD COUNT 12.9 10^3/uL (4.0-10.0)
[2017-02-23 13:26] LABS: CALCIUM LEVEL 9.6 MG/DL (8.8-10.2); CREATININE FOR GFR 1.45 MG/DL (0.70-1.30); GLOMERULAR FILTRATION RATE 51.4 (>49); MAGNESIUM LEVEL 2.1 MG/DL (1.8-2.4)
== END ==
LOC: M SMT 07:56
PROVIDERS: ATTEND Family Medicine
DX: I27.81 Cor pulmonale (chronic) (principal); J44.1 Chronic obstructive pulmonary disease with (acute) exacerbation

== ENCOUNTER → 2017-08-02 | Outpatient (CLI) | payer MEDICARE ==
[2017-08-02 13:30] LABS: BASO # 0.1 10^3/uL (0.0-0.2); BASO % 0.7 % (0.0-1.0); EOS # 0.1 10^3/uL (0.0-0.50); EOS % 0.9 % (0.0-3.0); HEMATOCRIT 46.9 % (42.0-52.0); HEMOGLOBIN 14.9 g/dl (13.5-17.5); IMMATURE GRANULOCYTE % 2.2 % (0-3.0); LYMPH # 1.2 10^3/uL (1.5-4.5); LYMPH % 7.8 % (24.0-44.0); MEAN CORPUSCULAR HGB CONC 31.8 g/dl (32.0-36.5); MEAN CORPUSCULAR VOLUME 94.6 fl (80.0-96.0); MONO # 0.7 10^3/uL (0.0-0.8); MONO % 4.6 % (0.0-5.0); NEUTROPHILS # 12.8 10^3/uL (1.8-7.7); NEUTROPHILS % 83.8 % (36.0-66.0); PLATELET COUNT, AUTOMATED 261 10^3/uL (150-450); RED BLOOD COUNT 4.96 10^6/uL (4.30-6.10); RED CELL DISTRIBUTION WIDTH 15.9 % (11.5-14.5); WHITE BLOOD COUNT 15.2 10^3/uL (4.0-10.0)
[2017-08-02 15:13] LABS: ALBUMIN 3.2 GM/DL (3.2-5.2); ALBUMIN/GLOBULIN RATIO 0.74 (1.00-1.93); ALKALINE PHOSPHATASE 97 U/L (45-117); ALT/SGPT 25 U/L (12-78); ANION GAP 7 MEQ/L (8-16); AST/SGOT 19 U/L (7-37); BILIRUBIN,TOTAL 0.6 MG/DL (0.2-1.0); BLOOD UREA NITROGEN 55 MG/DL (7-18); CARBON DIOXIDE LEVEL 33 MEQ/L (21-32); CHLORIDE LEVEL 102 MEQ/L (98-107); CREATININE FOR GFR 1.95 MG/DL (0.70-1.30); GLOMERULAR FILTRATION RATE 36.5 (>49); GLUCOSE, FASTING 52 MG/DL (70-100); POTASSIUM SERUM 4.3 MEQ/L (3.5-5.1); SODIUM LEVEL 142 MEQ/L (136-145); TOTAL PROTEIN 7.5 GM/DL (6.4-8.2)
[2017-08-02 15:26] LABS: ESTIMATED AVERAGE GLUCOSE 166 MG/DL (60-110); HEMOGLOBIN A1c 7.4 %
== END ==
LOC: M SMT 09:07
DX: J44.1 Chronic obstructive pulmonary disease with (acute) exacerbation (principal); E11.9 Type 2 diabetes mellitus without complications
CPT/HCPCS: 80198

== ENCOUNTER → 2017-09-03 | Outpatient (REF) | payer MEDICARE ==
[2017-09-03 12:29] LABS: ANION GAP 12 MEQ/L (8-16); BLOOD UREA NITROGEN 40 MG/DL (7-18); CALCIUM LEVEL 8.8 MG/DL (8.8-10.2); CARBON DIOXIDE LEVEL 26 MEQ/L (21-32); CHLORIDE LEVEL 105 MEQ/L (98-107); CREATININE FOR GFR 1.73 MG/DL (0.70-1.30); GLOMERULAR FILTRATION RATE 41.9 (>49); GLUCOSE, FASTING 85 MG/DL (70-100); MAGNESIUM LEVEL 2.4 MG/DL (1.8-2.4); POTASSIUM SERUM 4.4 MEQ/L (3.5-5.1); SODIUM LEVEL 143 MEQ/L (136-145)
== END ==
LOC: M LABDRAW1 08:21
DX: E87.8 Other disorders of electrolyte and fluid balance, not elsewhere classified (principal)
CPT/HCPCS: 83735

== ENCOUNTER 2018-02-13 08:40 | Emergency (ER) | payer MEDICARE ==
[2018-02-13] MEDS ORDERED: AMIODARONE 150MG/3ML INJ (J0282) (08:41)
[2018-02-13] MEDS ORDERED: SODIUM BICARBONATE 8.4% INJ 50MEQ 50 ML VIAL (08:41)
[2018-02-13] MEDS ORDERED: EPINEPHrine 1MG/10ML SYRINGE 1.5IN (08:41)
[2018-02-13] MEDS: EPINEPHrine 1MG/10ML SYRINGE 1.5IN IV ×5 (08:45→09:06)
[2018-02-13] MEDS: NS 1,000 ML IV ×2 (08:45→08:56)
[2018-02-13] MEDS: AMIODARONE 150MG/3ML INJ (J0282) IVP (08:56)
[2018-02-13] MEDS: SODIUM BICARBONATE 8.4% INJ 50 ML SYRINGE IV (08:58)
[2018-02-13] MEDS ORDERED: EPINEPHrine HCL INJ 1 MG in D5W 240 ML IV (09:15)
[2018-02-13] MEDS ORDERED: EPINEPHrine 1MG/10ML SYRINGE 1.5IN IV (11:10)
== END 2018-02-13 13:11 | disposition expired ==
LOC: M ED 08:40
DX: I21.19 ST elevation (STEMI) myocardial infarction involving other coronary artery of inferior wall (principal); I46.8 Cardiac arrest due to other underlying condition; I49.01 Ventricular fibrillation; I11.0 Hypertensive heart disease with heart failure; I50.9 Heart failure, unspecified; J44.9 Chronic obstructive pulmonary disease, unspecified; E78.5 Hyperlipidemia, unspecified; E11.9 Type 2 diabetes mellitus without complications; G47.30 Sleep apnea, unspecified; F17.200 Nicotine dependence, unspecified, uncomplicated; Z88.8 Allergy status to other drugs, medicaments and biological substances; Z79.899 Other long term (current) drug therapy; Z79.82 Long term (current) use of aspirin; Z79.4 Long term (current) use of insulin; Z79.52 Long term (current) use of systemic steroids; Z79.51 Long term (current) use of inhaled steroids
CPT/HCPCS: J0282